=== PATIENT | female | born 1935 | race Caucasian/White ===

== ENCOUNTER 2020-04-30 19:35 | Emergency (ER) | payer MEDICARE, BC ==
[2020-04-30 19:42] VITALS: BP 137/64; PULSE 72
[2020-04-30] MEDS ORDERED: Lidocaine 1% with EPINEPHrine 1:100,000 50 ML MDV INFILT ONE (21:03)
--- NOTE | 2020-04-30 21:33 | EDM.PDOC ---
ED HPI GENERAL MEDICAL PROBLEM - General Chief Complaint: Laceration Stated Complaint: FELL Time Seen by Provider: 04/30/20 21:13 Source of Information: Reports: Patient, EMS History Limitations: Reports: No Limitations - History of Present Illness INITIAL COMMENTS - FREE TEXT/NARRATIVE: Iris is an 84-year-old female presenting to the ED for evaluation of a laceration to her scalp that occurred when she fell at home today striking the oak cabinets in her kitchen. Patient has a history of her left foot weakness and giving out if she starts walking with it. She inadvertently started to walk leading with her left foot which did give out causing her to fall backwards striking her head against the cabinets of her kitchen. She denies any loss of consciousness or significant headache. She did have a laceration of the scalp over the occiput. She denies any neck pain, numbness or tingling, change in vision, ringing in the ears, or new weakness. She has had no nausea or vomiting. She arrived via [facility] with bleeding controlled. Head Pain Score (Numeric/FACES): 8 - Related Data Allergies Allergy/AdvReac Type Severity Reaction Status Date / Time aspirin [From Percodan] Allergy Cannot Verified 04/30/20 19:50 Remember codeine Allergy Nausea Verified 04/30/20 19:50 erythromycin base Allergy Nausea and Verified 04/30/20 19:50 [Erythromycin Base] Vomiting latex Allergy Itching Verified 04/30/20 19:50 oxycodone HCl [From Percodan] Allergy Cannot Verified 04/30/20 19:50 Remember oxycodone terephthalate Allergy Cannot Verified 04/30/20 19:50 [From Percodan] Remember Home Meds: Home Meds Digoxin 250 mcg PO DAILY 04/21/14 [History] Apixaban [Eliquis] 1 tab PO BID 04/30/20 [History] Furosemide [Lasix] 20 mg PO DAILY 04/30/20 [History] Magnesium Oxide 1 tab PO DAILY 04/30/20 [History] Sotalol HCl [Sotalol] 1 tab PO BID 04/30/20 [History] Past Medical History HEENT History: Reports: Hard of Hearing Cardiovascular History: Reports: Afib, Pacemaker Gastrointestinal History: Reports: GERD Psychiatric History: Reports: Dementia Hematologic History: Reports: Anticoagulation Therapy - Past Surgical History Cardiovascular Surgical History: Reports: Pacer Social & Family History - Tobacco Use Tobacco Use Status *Q: Never Tobacco User ED ROS GENERAL - Review of Systems Review Of Systems: See Below Constitutional: Reports: No Symptoms HEENT: Reports: Other (Laceration over the right occiput with bleeding controlled at this time.) Respiratory: Reports: No Symptoms Cardiovascular: Reports: No Symptoms Endocrine: Reports: No Symptoms GI/Abdominal: Reports: No Symptoms : Reports: No Symptoms Musculoskeletal: Reports: No Symptoms. Denies: Back Pain Skin: Reports: Wound (Laceration right occiput) Neurological: Reports: Weakness (Chronic weakness in the left foot). Denies: Dizziness, Headache, Numbness, Paresthesia Psychiatric: Reports: No Symptoms Hematologic/Lymphatic: Reports: No Symptoms Immunologic: Reports: No Symptoms ED EXAM, SKIN/RASH Exam: See Below Exam Limited By: No Limitations General Appearance: Alert, WD/WN, No Apparent Distress Eye Exam: Bilateral Eye: Bleeding, EOMI, PERRL, Vision Changes Ears: Normal External Exam, Normal Canal, Hearing Grossly Normal, Normal TMs, Other (No hemotympanum) Nose: Normal Inspection, Normal Mucosa, No Blood Throat/Mouth: Normal Inspection, Normal Lips, Normal Teeth, Normal Gums, Normal Oropharynx, Normal Voice Head: Other (3.6 cm laceration right occiput that gaps widely.) Neck: Normal Inspection, Supple, Non-Tender, Full Range of Motion Respiratory/Chest: No Respiratory Distress, Lungs Clear, Normal Breath Sounds, Chest Non-Tender Cardiovascular: Normal Peripheral Pulses, Regular Rate, Rhythm, No Murmur Peripheral Pulses: 2+: Radial (L), Radial (R) GI/Abdominal: Normal Bowel Sounds, Soft, Non-Tender Back Exam: Normal Inspection, Full Range of Motion Extremities: Normal Inspection, Normal Range of Motion, Non-Tender Neurological: Alert, Oriented, CN II-XII Intact, Normal Cognition, Sensory/Motor Deficit (Mild weakness in the left leg which is chronic.) Psychiatric: Normal Affect, Normal Mood Skin: Warm, Dry Lymphatic: No Adenopathy ED SKIN PROCEDURES - Laceration/Wound Repair Right Posterior Head Appearance: Muscle, Clean Distal NVT: Neuro & Vascular Intact Anesthetic Type: Local Local Anesthesia - Lidocaine (Xylocaine): 1% with EPI Local Anesthetic Volume: 3cc Skin Prep: Other (Tap water) Exploration/Debridement/Repair: Wound Explored, In a Bloodless Field, Explored to Base Closed with: Sutures Lac/Wound length In cm: 3.6 Suture Size: 4-0 # of Sutures: 6 Suture Type: Prolene Drain Placement: No Sterile Dressing Applied: None Tetanus Status Addressed: Yes Complications: No Course - Vital Signs Last Recorded V/S: Last Vital Signs Temp 36.5 C 04/30/20 19:42 Pulse 72 04/30/20 19:42 Resp 16 04/30/20 19:42 BP 137/64 04/30/20 19:42 Pulse Ox 98 04/30/20 19:42 - Orders/Labs/Meds Meds: Medications Discontinued Medications Generic Name Dose Route Start Last Admin Trade Name Freq PRN Reason Stop Dose Admin Lidocaine/Epinephrine 5 ml 04/30/20 21:03 Xylocaine 1% With Epinephrine 1:100,000 INFILT 04/30/20 21:04 ONETIME ONE Departure - Departure Time of Disposition: 21:30 Disposition: Home, Self-Care 01 Condition: Good Clinical Impression: Fall Qualifiers: Encounter type: initial encounter Qualified Code(s): W19.XXXA - Unspecified fall, initial encounter Occipital scalp laceration Qualifiers: Encounter type: initial encounter Qualified Code(s): S01.01XA - Laceration without foreign body of scalp, initial encounter - Discharge Information Instructions: Laceration Care, Adult, Wound Care, Adult Referrals: Monica Ball PA [Primary Care Provider] - Forms: ED Department Discharge Care Plan Goals: We have sutured your laceration on the scalp. You may have some light bleeding from the area over the next 12 to 24 hours as the scab forms. I would recommend applying a light coating of antibiotic ointment to the wound twice daily. This should help not only prevent infection but also aid in the healing. The sutures will need to be removed in 7 to 10 days which can be done at the clinic. Should you develop any significant headache we should see you back for reevaluation. It was a delight meeting with you. Sepsis Event Note (ED) - Evaluation Sepsis Screening Result: No Definite Risk - Focused Exam Vital Signs: Vital Signs Temp Pulse Resp BP Pulse Ox 04/30/20 19:42 36.5 C 72 16 137/64 98 04/30/20 19:40 36.5 C 72 16 137/64 98 - Problem List & Annotations (1) Fall SNOMED Code(s): 2783725, 317634059 Code(s): W19.XXXA - UNSPECIFIED FALL, INITIAL ENCOUNTER Status: Acute Priority: Medium Current Visit: Yes Qualifiers: Encounter type: initial encounter Qualified Code(s): W19.XXXA - Unspecified fall, initial encounter (2) Occipital scalp laceration SNOMED Code(s): 361147229 Code(s): S01.01XA - LACERATION WITHOUT FOREIGN BODY OF SCALP, INITIAL ENCOUNTER Status: Acute Priority: Medium Current Visit: Yes Qualifiers: Encounter type: initial encounter Qualified Code(s): S01.01XA - Laceration without foreign body of scalp, initial encounter - Problem List Review Problem List Initiated/Reviewed/Updated: Yes
[2020-04-30] MEDS ORDERED: Bacitracin Oint 1 GM U/D Packet TOP ONE (21:38)
[2020-04-30] MEDS ORDERED: Diphtheria/Tetanus Toxoids,Adult (Td) 0.5 ML SDV IM ONE (21:40)
== END 2020-04-30 21:52 | disposition home or self-care (01) ==
LOC: JP.ED 19:35
DX: S01.01XA Laceration without foreign body of scalp, initial encounter (principal); R53.1 Weakness; I48.91 Unspecified atrial fibrillation; F03.90 Unspecified dementia, unspecified severity, without behavioral disturbance, psychotic disturbance, mood disturbance, and anxiety; Z23 Encounter for immunization; Z79.01 Long term (current) use of anticoagulants; Z79.899 Other long term (current) drug therapy; Z88.8 Allergy status to other drugs, medicaments and biological substances; Z88.5 Allergy status to narcotic agent; Z88.1 Allergy status to other antibiotic agents; Z91.040 Latex allergy status; Z88.6 Allergy status to analgesic agent; W19.XXXA Unspecified fall, initial encounter; W22.8XXA Striking against or struck by other objects, initial encounter; Y93.01 Activity, walking, marching and hiking; Y92.000 Kitchen of unspecified non-institutional (private) residence as the place of occurrence of the external cause
CPT/HCPCS: 12002; 90471; 90714; 99283-25

== ENCOUNTER 2020-05-31 08:01 | Inpatient (IN) | payer MEDICARE, BC ==
[2020-05-31] MEDS ORDERED: Ondansetron 4 MG/2 ML SDV IVPUSH ONE (08:52)
[2020-05-31] MEDS ORDERED: Sodium Chloride 0.9% 1,000 ML IV SCH ×3 (09:00→15:30)
--- NOTE | 2020-05-31 09:00 | EDM.PDOC ---
ED HPI GENERAL MEDICAL PROBLEM - General Chief Complaint: General Stated Complaint: WEAK, VOMITING Time Seen by Provider: 05/31/20 08:40 Source of Information: Reports: Patient, Family History Limitations: Reports: No Limitations - History of Present Illness INITIAL COMMENTS - FREE TEXT/NARRATIVE: 84-year-old female with profound weakness, diarrhea and persistent nausea and vomiting found at her assisted living apartment this morning on the kitchen floor unable to get up due to weakness. She was seen in the clinic yesterday and had some labs drawn, saw an ENT specialist and her [id number] commented that that time that she did not "look well" so some labs were drawn and she was sent home. She continues to have nausea and vomiting and diarrhea and increased weakness. She had a headache and light sensitivity yesterday. Onset: Gradual Duration: Day(s): (Worsening over the past several days) Location: Reports: Generalized Associated Symptoms: Reports: Headaches, Malaise, Weakness, Other (Headache, photophobia). Denies: Chest Pain, Cough, Fever/Chills, Shortness of Breath - Related Data Allergies Allergy/AdvReac Type Severity Reaction Status Date / Time aspirin [From Percodan] Allergy Cannot Verified 05/31/20 08:32 Remember codeine Allergy Nausea Verified 05/31/20 08:32 erythromycin base Allergy Nausea and Verified 05/31/20 08:32 [Erythromycin Base] Vomiting latex Allergy Itching Verified 05/31/20 08:32 oxycodone HCl [From Percodan] Allergy Cannot Verified 05/31/20 08:32 Remember oxycodone terephthalate Allergy Cannot Verified 05/31/20 08:32 [From Percodan] Remember Home Meds: Home Meds Digoxin 250 mcg PO DAILY 04/21/14 [History] Apixaban [Eliquis] 2.5 mg PO BID 04/30/20 [History] Furosemide [Lasix] 20 mg PO DAILY 04/30/20 [History] Magnesium Oxide 250 mg PO DAILY 04/30/20 [History] Sotalol HCl [Sotalol] 80 mg PO BID 04/30/20 [History] Donepezil [Aricept] 5 mg PO DAILY 05/31/20 [History] Past Medical History HEENT History: Reports: Hard of Hearing Cardiovascular History: Reports: Afib, Pacemaker Gastrointestinal History: Reports: GERD Psychiatric History: Reports: Dementia Hematologic History: Reports: Anticoagulation Therapy - Past Surgical History Cardiovascular Surgical History: Reports: Pacer Social & Family History - Tobacco Use Tobacco Use Status *Q: Never Tobacco User ED ROS GENERAL - Review of Systems Review Of Systems: See Below Constitutional: Reports: Malaise, Decreased Appetite. Denies: Fever, Chills HEENT: Reports: Other (Photophobia). Denies: Vision Change Respiratory: Denies: Shortness of Breath, Cough Cardiovascular: Denies: Chest Pain, Palpitations (Has a pacemaker to override intermittent atrial fibrillation) GI/Abdominal: Reports: Diarrhea, Nausea, Vomiting. Denies: Abdominal Pain, Black Stool, Hematemesis, Hematochezia : Denies: Dysuria, Frequency, Urgency Musculoskeletal: Reports: Other (Denies musculoskeletal pain or injury from falling) Neurological: Reports: Headache, Other (Had a closed head injury last month) ED EXAM, GENERAL - Physical Exam Exam: See Below Exam Limited By: No Limitations General Appearance: Alert, No Apparent Distress, Other (Patient looks extremely tired, keeps eyes closed when not interacting) Eye Exam: Bilateral Eye: EOMI, Other (Appears sunken) Throat/Mouth: Other (Mild mucosal dryness) Head: Atraumatic Neck: Non-Tender Respiratory/Chest: Lungs Clear Cardiovascular: Regular Rate, Rhythm. No: Tachycardia GI/Abdominal: Normal Bowel Sounds, Soft Extremities: Other (Symmetric 1+ pitting edema, compression stockings are on) Neurological: Alert, Oriented, Slow to Respond. No: Disoriented Psychiatric: Depressed Mood, Flat Affect Skin Exam: Warm, Dry, Other (Looks somewhat pale) Course - Vital Signs Last Recorded V/S: Last Vital Signs Temp 97.7 F 05/31/20 12:21 Pulse 70 05/31/20 08:39 Resp 12 05/31/20 12:21 BP 109/56 L 05/31/20 12:21 Pulse Ox 96 05/31/20 12:21 - Orders/Labs/Meds Orders: Medication Orders Acetaminophen (Tylenol) 650 mg PO Q4H PRN PRN Reason: Pain (Mild 1-3)/fever Digoxin (Lanoxin) 250 mcg PO DAILY@1300 JANEL Sodium Chloride (Normal Saline) 1,000 mls @ 125 mls/hr IV ASDIRECTED JANEL Magnesium Oxide (Magnesium Oxide) 400 mg PO DAILY JANEL Ondansetron HCl (Zofran) 4 mg IV Q4H PRN PRN Reason: Nausea/Vomiting Sodium Chloride (Saline Flush) 10 ml FLUSH ASDIRECTED PRN PRN Reason: Keep Vein Open Sotalol HCl (Betapace) 80 mg PO BID [facility] Labs: Laboratory Tests 05/31/20 05/31/20 05/31/20 Range/Units 08:45 08:45 09:10 WBC 8.2 (4.5-11.0) K/uL RBC 4.37 (3.30-5.50) M/uL Hgb 13.7 (12.0-15.0) g/dL Hct 38.6 (36.0-48.0) % MCV 88 (80-98) fL MCH 31 (27-31) pg MCHC 36 (32-36) % Plt Count 238 (150-400) K/uL Neut % (Auto) 69 H (36-66) % Lymph % (Auto) 21 L (24-44) % Cook % (Auto) 9 H (2-6) % Eos % (Auto) 0 L (2-4) % Baso % (Auto) 0 (0-1) % Sodium 116 L* (140-148) mmol/L Potassium 3.9 (3.6-5.2) mmol/L Chloride 83 L (100-108) mmol/L Carbon Dioxide 21 (21-32) mmol/L Anion Gap 15.9 H (5.0-14.0) mmol/L BUN 18 (7-18) mg/dL Creatinine 0.6 (0.6-1.0) mg/dL Est Cr Clr Drug Dosing 55.80 mL/min Estimated GFR (MDRD) > 60 (>60) Glucose 150 H (74-106) mg/dL Calcium 8.6 (8.5-10.1) mg/dL Total Bilirubin 1.3 H D (0.2-1.0) mg/dL AST 33 (15-37) U/L ALT 35 (12-78) U/L Alkaline Phosphatase 79 (46-116) U/L Creatine Kinase 196 H (26-192) U/L Total Protein 6.7 (6.4-8.2) g/dL Albumin 3.6 (3.4-5.0) g/dL Globulin 3.1 (2.3-3.5) g/dL Albumin/Globulin Ratio 1.2 (1.2-2.2) Urine Color Yellow (YELLOW) Urine Appearance Slightly cloudy A (CLEAR) Urine pH 5.5 (5.0-8.0) Ur Specific Mcgrady >= 1.030 (1.008-1.030) Urine Protein 100 H (NEGATIVE) mg/dL Urine Glucose (UA) Negative (NEGATIVE) mg/dL Urine Ketones 40 H (NEGATIVE) mg/dL Urine Occult Blood Moderate H (NEGATIVE) Urine Nitrite Negative (NEGATIVE) Urine Bilirubin Small H (NEGATIVE) Urine Urobilinogen 0.2 (0.2-1.0) EU/dL Ur Leukocyte Esterase Negative (NEGATIVE) Urine RBC 5-10 H (0-5) Urine WBC 0-5 (0-5) Ur Epithelial Cells Not seen Amorphous Sediment Moderate Urine Bacteria Few Urine Mucus Many Meds: Medications Generic Name Dose Route Start Last Admin Trade Name Freq PRN Reason Stop Dose Admin Acetaminophen 650 mg 05/31/20 11:28 Tylenol PO Q4H PRN Pain (Mild 1-3)/fever Digoxin 250 mcg 06/01/20 13:00 Lanoxin PO DAILY@1300 JANEL Sodium Chloride 1,000 mls @ 125 mls/hr 05/31/20 11:28 Normal Saline IV ASDIRECTED JANEL Magnesium Oxide 400 mg 06/01/20 09:00 Magnesium Oxide PO DAILY JANEL Ondansetron HCl 4 mg 05/31/20 11:28 Zofran IV Q4H PRN Nausea/Vomiting Sodium Chloride 10 ml 05/31/20 11:28 Saline Flush FLUSH ASDIRECTED PRN Keep Vein Open Sotalol HCl 80 mg 05/31/20 21:00 Betapace PO BID JANEL Discontinued Medications Generic Name Dose Route Start Last Admin Trade Name Freq PRN Reason Stop Dose Admin Apixaban 2.5 mg 05/31/20 21:00 Eliquis PO BID JANEL Donepezil HCl 5 mg 06/01/20 09:00 Aricept PO DAILY JANEL Sodium Chloride 1,000 mls @ 250 mls/hr 05/31/20 09:00 05/31/20 09:09 Normal Saline IV 250 mls/hr ASDIRECTED JANEL Administration Ondansetron HCl 4 mg 05/31/20 08:52 02/05/21 09:09 Zofran IVPUSH 05/31/20 08:53 4 mg ONETIME ONE Administration - Re-Assessments/Exams Free Text/Narrative Re-Assessment/Exam: 05/31/20 09:01 Patient will be hydrated with 250 cc an hour of normal saline and given 4 mg of IV Zofran. CBC, CMP, CK will be obtained and compared with yesterday's labs, and a mini cath UA obtained. 05/31/20 09:25 Sodium is now 116, was [address] of the head without contrast will be obtained as the patient had a head injury 1 month ago and is on anticoagulants. 05/31/20 09:[address] shows what appears to be a nonacute hygroma over the right parietal lobe, UA shows no infection although there is 5-10 RBCs and ketones. Discussed her case with Dr. Marion will admit the patient for progressive weakness, hyponatremia, and persistent nausea and vomiting Departure - Departure Time of Disposition: 12:10 Disposition: Admitted As Inpatient 68 Clinical Impression: Hyponatremia, Dehydration, moderate, Weakness generalized, Subdural hygroma Nausea and vomiting Qualifiers: Vomiting type: unspecified Vomiting Intractability: non-intractable Qualified Code(s): R11.2 - Nausea with vomiting, unspecified - Discharge Information Sepsis Event Note (ED) - Evaluation Sepsis Screening Result: No Definite Risk - Focused Exam Vital Signs: Vital Signs Temp Pulse Resp BP Pulse Ox 05/31/20 08:39 98.2 F 70 18 161/80 H 94 L 05/31/20 08:26 98.2 F 70 18 161/80 H 94 L
--- NOTE | 2020-05-31 09:56 | CT ---
Head wo Cont CLINICAL HISTORY: Increasing weakness, history of fall COMPARISON: 2019 TECHNIQUE: Transverse scans were obtained from the base of the skull through the vertex without IV contrast on a multislice, multidetector CT scanner. Auto dosage reduction and iterative reconstruction techniques employed. FINDINGS: No focal abnormal parenchymal density is identified.. There is no mass defect or acute hemorrhage. There is a low-attenuation extra-axial collection over the right parietal lobe. This extends approximately 6 cm in AP dimension and 5 cm in transverse dimension. The maximum thickness is about 8 mm. There is some minimal increased fluid density in the dependent portion of this collection which may represent previous blood product. The basal cisterns and sulci over the convexities are normal for age. The ventricles are normal for age. IMPRESSION: Low-attenuation extra-axial collection over the right parietal lobe is consistent with a small subdural hygroma. (Patient had a history of fall last month. )There is minimal mass effect with no shift of the midline. Minimal density in the dependent portion of this fluid collection may represent blood products from old subdural hemorrhage. A small superimposed acute hemorrhage is not absolutely excluded but felt less likely.
--- NOTE | 2020-05-31 10:14 | PCM.HP.2 ---
H&P History of Present Illness - General Date of Service: 05/31/20 Admit Problem/Dx: Admission Diagnosis/Problem Admission Diagnosis/Problem Hyponatremia Source of Information: Patient, Provider, RN Notes Reviewed History Limitations: Reports: Altered Mental Status (Dementia) - History of Present Illness Initial Comments - Free Text/Narative: Ms. Gann is an 84-year-old woman who was admitted through the emergency department with weakness secondary to nausea and vomiting, resulting in severe hyponatremia. Over the past few days has had nausea vomiting with progressive weakness. She was found on the floor today and unable to get up. On evaluation in the emergency department labs and CT scan of the head were unremarkable except for sodium of 116. Labs have been obtained at the clinic yesterday and her sodium was 127. She reports that she had been taking a stool softener and thinks that this did result in her vomiting and diarrhea. - Related Data Allergies/Adverse Reactions: Allergies Allergy/AdvReac Type Severity Reaction Status Date / Time aspirin [From Percodan] Allergy Cannot Verified 05/31/20 08:32 Remember codeine Allergy Nausea Verified 05/31/20 08:32 erythromycin base Allergy Nausea and Verified 05/31/20 08:32 [Erythromycin Base] Vomiting latex Allergy Itching Verified 05/31/20 08:32 oxycodone HCl [From Percodan] Allergy Cannot Verified 05/31/20 08:32 Remember oxycodone terephthalate Allergy Cannot Verified 05/31/20 08:32 [From Percodan] Remember Home Medications: Home Meds Digoxin 250 mcg PO DAILY 04/21/14 [History] Apixaban [Eliquis] 1 tab PO BID 04/30/20 [History] Furosemide [Lasix] 20 mg PO DAILY 04/30/20 [History] Magnesium Oxide 1 tab PO DAILY 04/30/20 [History] Sotalol HCl [Sotalol] 1 tab PO BID 04/30/20 [History] Donepezil [Aricept] 1 tab PO DAILY 05/31/20 [History] Past Medical History HEENT History: Reports: Hard of Hearing Cardiovascular History: Reports: Afib, Pacemaker Gastrointestinal History: Reports: GERD Psychiatric History: Reports: Dementia Hematologic History: Reports: Anticoagulation Therapy - Past Surgical History Cardiovascular Surgical History: Reports: Pacer Social & Family History - Tobacco Use Tobacco Use Status *Q: Never Tobacco User H&P Review of Systems - Review of Systems: Review Of Systems: See Below General: Reports: Malaise, Weakness, Fatigue. Denies: Fever, Chills HEENT: Reports: No Symptoms Pulmonary: Reports: No Symptoms Cardiovascular: Reports: No Symptoms Gastrointestinal: Reports: Diarrhea, Nausea, Vomiting. Denies: Abdominal Pain, Difficulty Swallowing, Distension, Hematemesis, Hematochezia, Melena Genitourinary: Reports: No Symptoms Musculoskeletal: Reports: No Symptoms Skin: Reports: No Symptoms Psychiatric: Reports: No Symptoms Neurological: Reports: No Symptoms Hematologic/Lymphatic: Reports: No Symptoms Immunologic: Reports: No Symptoms Exam - Exam Exam: See Below - Vital Signs Vital Signs: Last Vital Signs Temp 98.2 F 05/31/20 08:39 Pulse 70 05/31/20 08:39 Resp 18 05/31/20 08:39 BP 161/80 H 05/31/20 08:39 Pulse Ox 94 L 05/31/20 08:39 Weight: 107 lb 12.897 oz - Exam Quality Assessment: DVT Prophylaxis General: Alert, Cooperative, Moderate Distress HEENT: Conjunctiva Clear, Hearing Intact, Normal Nasal Septum, Posterior Pharynx Clear, Pupils Equal. No: Mucosa Moist & Hallock Neck: Supple, Trachea Midline, +2 Carotid Pulse wo Bruit Lungs: Clear to Auscultation, Normal Respiratory Effort Cardiovascular: Regular Rate, Regular Rhythm, Normal S1, Normal S2. No: Systolic Murmur, Diastolic Murmur GI/Abdominal Exam: Soft, Non-Tender, No Organomegaly, No Distention Extremities: Non-Tender, No Pedal Edema Skin: Warm, Dry, Intact Neurological: Cranial Nerves Intact, Strength Equal Bilateral, Normal Speech, Normal Tone, Sensation Intact. No: Focal Deficit Neuro Extensive - Mental Status: Alert, Oriented x3, Memory Loss-Remote Events, Memory Loss-Recent Events. No: Normal Cognition, Memory Intact - Patient Data Lab Results Last 24 hrs: Laboratory Results - last 24 hr 05/31/20 05/31/20 05/31/20 Range/Units 08:45 08:45 09:10 WBC 8.2 (4.5-11.0) K/uL RBC 4.37 (3.30-5.50) M/uL Hgb 13.7 (12.0-15.0) g/dL Hct 38.6 (36.0-48.0) % MCV 88 (80-98) fL MCH 31 (27-31) pg MCHC 36 (32-36) % Plt Count 238 (150-400) K/uL Neut % (Auto) 69 H (36-66) % Lymph % (Auto) 21 L (24-44) % [place] % (Auto) 9 H (2-6) % Eos % (Auto) 0 L (2-4) % Baso % (Auto) 0 (0-1) % Sodium 116 L* (140-148) mmol/L Potassium 3.9 (3.6-5.2) mmol/L Chloride 83 L (100-108) mmol/L Carbon Dioxide 21 (21-32) mmol/L Anion Gap 15.9 H (5.0-14.0) mmol/L BUN 18 (7-18) mg/dL Creatinine 0.6 (0.6-1.0) mg/dL Est Cr Clr Drug Dosing 55.80 mL/min Estimated GFR (MDRD) > 60 (>60) Glucose 150 H (74-106) mg/dL Calcium 8.6 (8.5-10.1) mg/dL Total Bilirubin 1.3 H D (0.2-1.0) mg/dL AST 33 (15-37) U/L ALT 35 (12-78) U/L Alkaline Phosphatase 79 (46-116) U/L Creatine Kinase 196 H (26-192) U/L Total Protein 6.7 (6.4-8.2) g/dL Albumin 3.6 (3.4-5.0) g/dL Globulin 3.1 (2.3-3.5) g/dL Albumin/Globulin Ratio 1.2 (1.2-2.2) Urine Color Yellow (YELLOW) Urine Appearance Slightly cloudy A (CLEAR) Urine pH 5.5 (5.0-8.0) Ur Specific Chancellor >= 1.030 (1.008-1.030) Urine Protein 100 H (NEGATIVE) mg/dL Urine Glucose (UA) Negative (NEGATIVE) mg/dL Urine Ketones 40 H (NEGATIVE) mg/dL Urine Occult Blood Moderate H (NEGATIVE) Urine Nitrite Negative (NEGATIVE) Urine Bilirubin Small H (NEGATIVE) Urine Urobilinogen 0.2 (0.2-1.0) EU/dL Ur Leukocyte Esterase Negative (NEGATIVE) Urine RBC 5-10 H (0-5) Urine WBC 0-5 (0-5) Ur Epithelial Cells Not seen Amorphous Sediment Moderate Urine Bacteria Few Urine Mucus Many Result Diagrams: 05/31/20 08:45 05/31/20 10:07 Sepsis Event Note - Evaluation Sepsis Screening Result: No Definite Risk - Focused Exam Vital Signs: Vital Signs Temp Pulse Resp BP Pulse Ox 05/31/20 08:39 98.2 F 70 18 161/80 H 94 L 05/31/20 08:26 98.2 F 70 18 161/80 H 94 L *Q Meaningful Use (ADM) - VTE *Q VTE Pharmacological Contraindications *Q: High INR Value - VTE Risk Assess *Q Each Risk Factor Represents 1 Point: None Total Score 1 Point Risk Factors: 0 Each Risk Factor Represents 2 Points: None Total Score 2 Point Risk Factors: 0 Each Risk Factor Represents 3 Points: Age 75 Years or Greater Total Score 3 Point Risk Factors: 3 Each Risk Factor Represents 5 Points: None Total Score 5 Point Risk Factors: 0 Venous Thromboembolism Risk Factor Score *Q: 3 Problem List Initiated/Reviewed/Updated: Yes Orders Last 24hrs: Active Orders 24 hr Category Date Time Status Patient Status Manage Transfer [TRANSFER] Routine ADT 05/31/20 10:08 Ordered SODIUM,NA [CHEM] [facility] 05/31/20 10:07 Ordered SODIUM,NA [CHEM] [facility] 05/31/20 12:07 Ordered SODIUM,NA [CHEM] [facility] 05/31/20 14:07 Ordered SODIUM,NA [CHEM] [facility] 05/31/20 16:07 Ordered SODIUM,NA [CHEM] [facility] 05/31/20 18:07 Ordered SODIUM,NA [CHEM] [facility] 05/31/20 20:07 Ordered SODIUM,NA [CHEM] [facility] 05/31/20 22:07 Ordered SODIUM,NA [CHEM] [facility] 06/01/20 00:07 Ordered SODIUM,NA [CHEM] [facility] 06/01/20 02:07 Ordered SODIUM,NA [CHEM] [facility] 06/01/20 04:07 Ordered Sodium Chloride 0.9% [Normal Saline] 1,000 ml Med 05/31/20 09:00 Active IV ASDIRECTED Resuscitation Status Routine Resus Stat 05/31/20 10:10 Ordered Medication Orders Sodium Chloride (Normal Saline) 1,000 mls @ 250 mls/hr IV ASDIRECTED [facility] Last Admin: 05/31/20 09:09 Dose: 250 mls/hr Documented by: LEV Assessment/Plan Comment:: ASSESSMENT AND PLAN HYPONATREMIA-likely secondary to dehydration, less likely SIADH. She has had recent nausea vomiting and diarrhea with progressive weakness. Sodium level yesterday was 127 and is dropped to 116 today. -Cautious hydration with normal saline -Sodium levels every 2 hours -Maximum increase in sodium level over the next 24 hours of 8 mmol/L -Switch IV fluids to half-normal saline or D5W if needed NAUSEA, VOMITING, AND DIARRHEA-patient attributes this to recent stool softener use, I suspect underlying viral gastroenteritis -Supportive care -Hydration as above DEMENTIA -Continue outpatient medications ATRIAL FIBRILLATION -Continue outpatient anticoagulation with Eliquis -Continue sotalol MAINTENANCE ISSUES -DVT prophylaxis; current therapy with Eliquis should provide adequate DVT prophylaxis -GI prophylaxis; not indicated -Vergara catheter; not indicated -Nutrition; regular diet -Nicotine dependence; not required CODE STATUS-FULL CODE ADMISSION STATUS-patient will be admitted to inpatient status, expect at least a 2 night hospital stay for evaluation and management of problems as outlined above. At the time of this admission I do not reasonably expected evaluation and management of this problem will require more than a 96 hour hospital stay. DISPOSITION-anticipate discharge to home after the hospital stay. PRIMARY CARE PROVIDER-Rosa Ball - Mortality Measure Prognosis:: Good
[2020-05-31] MEDS ORDERED: Ondansetron 4 MG/2 ML SDV IV PRN (11:28)
[2020-05-31] MEDS ORDERED: Sodium Chloride 0.9% 10 ML Syringe FLUSH PRN (11:28)
[2020-05-31] MEDS ORDERED: Sodium Chloride 0.45% 1,000 ML IV SCH (13:00)
[2020-05-31] MEDS: Acetaminophen 325 MG Tab PO PRN (13:34)
[2020-05-31] MEDS: Sotalol 80 MG Tab PO SCH (20:46)
[2020-05-31] MEDS: Dextrose 5% in Water 1,000 ML IV SCH (20:46)
[2020-05-31] MEDS: Melatonin 3 MG Tab PO SCH (20:56)
[2020-05-31] MEDS ORDERED: Apixaban 2.5 MG Tab PO SCH (21:00)
[2020-06-01] MEDS: Dextrose 5% in Water 1,000 ML IV SCH (06:45)
[2020-06-01] MEDS: Acetaminophen 325 MG Tab PO PRN ×3 (07:55→21:33)
[2020-06-01] MEDS: Sotalol 80 MG Tab PO SCH ×2 (08:09→21:37)
[2020-06-01] MEDS ORDERED: Magnesium Oxide 400 MG Tab PO SCH ×2 (09:00)
[2020-06-01] MEDS ORDERED: Magnesium Sulfate/Water 2 GM/50 ML BAG IV ONE (09:00)
[2020-06-01] MEDS ORDERED: DONEPEZIL PO SCH (09:00)
[2020-06-01] MEDS ORDERED: Donepezil 10 MG Tab PO SCH (09:00)
--- NOTE | 2020-06-01 10:12 | PCM.PN ---
- General Info Date of Service: 06/01/20 Subjective Update: Ms. Gann been stable since admission. She remains fairly confused, but has not been significantly agitated. Sodium level has improved significantly from admission. Functional Status: Reports: Tolerating Diet, Ambulating, Urinating - Review of Systems General: Reports: Weakness, Fatigue Pulmonary: Reports: No Symptoms Cardiovascular: Reports: No Symptoms Gastrointestinal: Reports: No Symptoms Psychiatric: Reports: Confusion - Patient Data Vitals - Most Recent: Last Vital Signs Temp 97.6 F 06/01/20 07:52 Pulse 60 06/01/20 08:09 Resp 17 06/01/20 07:52 BP 119/71 06/01/20 08:09 Pulse Ox 95 06/01/20 07:52 Orthostatic Blood Pressure [ 125/68 Standing] Orthostatic Blood Pressure [ 113/60 Sitting] Orthostatic Blood Pressure [ 107/60 Supine] Weight - Most Recent: 248 lb 7.375 oz I&O - Last 24 Hours: Intake & Output 05/31/20 06/01/20 06/01/20 22:59 06:59 14:59 Intake Total 750 1574 50 Output Total 1650 450 750 Balance -900 1124 -700 Lab Results Last 24 Hours: Laboratory Results - last 24 hr 05/31/20 05/31/20 05/31/20 Range/Units 10:07 10:15 10:15 WBC (4.5-11.0) K/uL RBC (3.30-5.50) M/uL Hgb (12.0-15.0) g/dL Hct (36.0-48.0) % MCV (80-98) fL MCH (27-31) pg MCHC (32-36) % Plt Count (150-400) K/uL Neut % (Auto) (36-66) % Lymph % (Auto) (24-44) % [place] % (Auto) (2-6) % Eos % (Auto) (2-4) % Baso % (Auto) (0-1) % Sodium 119 L* (140-148) mmol/L Potassium (3.6-5.2) mmol/L Chloride (100-108) mmol/L Carbon Dioxide (21-32) mmol/L Anion Gap (5.0-14.0) mmol/L BUN (7-18) mg/dL Creatinine (0.6-1.0) mg/dL Est Cr Clr Drug Dosing mL/min Estimated GFR (MDRD) (>60) Glucose (74-106) mg/dL Calcium (8.5-10.1) mg/dL Magnesium (1.8-2.4) mg/dL TSH, Ultra Sensitive 0.897 (0.358-3.740) uIU/mL Digoxin < 0.20 L (0.90-2.00) ng/mL 05/31/20 05/31/20 05/31/20 Range/Units 12:20 14:40 16:15 WBC (4.5-11.0) K/uL RBC (3.30-5.50) M/uL Hgb (12.0-15.0) g/dL Hct (36.0-48.0) % MCV (80-98) fL MCH (27-31) pg MCHC (32-36) % Plt Count (150-400) K/uL Neut % (Auto) (36-66) % Lymph % (Auto) (24-44) % Ralls % (Auto) (2-6) % Eos % (Auto) (2-4) % Baso % (Auto) (0-1) % Sodium 121 L 119 L* 123 L (140-148) mmol/L Potassium (3.6-5.2) mmol/L Chloride (100-108) mmol/L Carbon Dioxide (21-32) mmol/L Anion Gap (5.0-14.0) mmol/L BUN (7-18) mg/dL Creatinine (0.6-1.0) mg/dL Est Cr Clr Drug Dosing mL/min Estimated GFR (MDRD) (>60) Glucose (74-106) mg/dL Calcium (8.5-10.1) mg/dL Magnesium (1.8-2.4) mg/dL TSH, Ultra Sensitive (0.358-3.740) uIU/mL Digoxin (0.90-2.00) ng/mL 05/31/20 05/31/20 05/31/20 Range/Units 18:56 20:07 22:10 WBC (4.5-11.0) K/uL RBC (3.30-5.50) M/uL Hgb (12.0-15.0) g/dL Hct (36.0-48.0) % MCV (80-98) fL MCH (27-31) pg MCHC (32-36) % Plt Count (150-400) K/uL Neut % (Auto) (36-66) % Lymph % (Auto) (24-44) % [place] % (Auto) (2-6) % Eos % (Auto) (2-4) % Baso % (Auto) (0-1) % Sodium 123 L 125 L 125 L (140-148) mmol/L Potassium (3.6-5.2) mmol/L Chloride (100-108) mmol/L Carbon Dioxide (21-32) mmol/L Anion Gap (5.0-14.0) mmol/L BUN (7-18) mg/dL Creatinine (0.6-1.0) mg/dL Est Cr Clr Drug Dosing mL/min Estimated GFR (MDRD) (>60) Glucose (74-106) mg/dL Calcium (8.5-10.1) mg/dL Magnesium (1.8-2.4) mg/dL TSH, Ultra Sensitive (0.358-3.740) uIU/mL Digoxin (0.90-2.00) ng/mL 06/01/20 06/01/20 06/01/20 Range/Units 00:15 02:07 04:10 WBC 8.6 (4.5-11.0) K/uL RBC 3.99 (3.30-5.50) M/uL Hgb 12.6 (12.0-15.0) g/dL Hct 36.0 (36.0-48.0) % MCV 90 (80-98) fL MCH 32 H (27-31) pg MCHC 35 (32-36) % Plt Count 208 (150-400) K/uL Neut % (Auto) 62 (36-66) % Lymph % (Auto) 23 L (24-44) % Ralls % (Auto) 14 H (2-6) % Eos % (Auto) 1 L (2-4) % Baso % (Auto) 0 (0-1) % Sodium 125 L 125 L (140-148) mmol/L Potassium (3.6-5.2) mmol/L Chloride (100-108) mmol/L Carbon Dioxide (21-32) mmol/L Anion Gap (5.0-14.0) mmol/L BUN (7-18) mg/dL Creatinine (0.6-1.0) mg/dL Est Cr Clr Drug Dosing mL/min Estimated GFR (MDRD) (>60) Glucose (74-106) mg/dL Calcium (8.5-10.1) mg/dL Magnesium (1.8-2.4) mg/dL TSH, Ultra Sensitive (0.358-3.740) uIU/mL Digoxin (0.90-2.00) ng/mL 06/01/20 06/01/20 06/01/20 Range/Units 04:10 06:00 08:00 WBC (4.5-11.0) K/uL RBC (3.30-5.50) M/uL Hgb (12.0-15.0) g/dL Hct (36.0-48.0) % MCV (80-98) fL MCH (27-31) pg MCHC (32-36) % Plt Count (150-400) K/uL Neut % (Auto) (36-66) % Lymph % (Auto) (24-44) % Ralls % (Auto) (2-6) % Eos % (Auto) (2-4) % Baso % (Auto) (0-1) % Sodium 123 L 126 L 125 L (140-148) mmol/L Potassium 3.6 (3.6-5.2) mmol/L Chloride 93 L (100-108) mmol/L Carbon Dioxide 26 (21-32) mmol/L Anion Gap 7.6 (5.0-14.0) mmol/L BUN 8 D (7-18) mg/dL Creatinine 0.8 (0.6-1.0) mg/dL Est Cr Clr Drug Dosing 41.85 mL/min Estimated GFR (MDRD) > 60 (>60) Glucose 111 H (74-106) mg/dL Calcium 8.3 L (8.5-10.1) mg/dL Magnesium 1.7 L (1.8-2.4) mg/dL TSH, Ultra Sensitive (0.358-3.740) uIU/mL Digoxin (0.90-2.00) ng/mL Med Orders - Current: Current Medications Acetaminophen (Tylenol) 650 mg PO Q4H PRN PRN Reason: Pain (Mild 1-3)/fever Last Admin: 06/01/20 07:55 Dose: 650 mg Documented by: Digoxin (Lanoxin) 250 mcg PO DAILY@1300 [facility] Sodium Chloride (Sodium Chloride 0.45%) 1,000 mls @ 100 mls/hr IV ASDIRECTED [facility] Last Admin: 05/31/20 13:02 Dose: 100 mls/hr Documented by: Magnesium Sulfate (Magnesium Sulfate In Water 2 Gm/50 Ml) 2 gm in 50 mls @ 25 mls/hr IV ONETIME ONE Stop: 06/01/20 10:59 Last Admin: 06/01/20 08:26 Dose: 25 mls/hr Documented by: Magnesium Oxide (Magnesium Oxide) 400 mg PO BID [facility] Melatonin (Melatonin) 9 mg PO BEDTIME [facility] Last Admin: 05/31/20 20:56 Dose: 9 mg Documented by: Ondansetron HCl (Zofran) 4 mg IV Q4H PRN PRN Reason: Nausea/Vomiting Sodium Chloride (Saline Flush) 10 ml FLUSH ASDIRECTED PRN PRN Reason: Keep Vein Open Sotalol HCl (Betapace) 80 mg PO BID [facility] Last Admin: 06/01/20 08:09 Dose: 80 mg Documented by: Discontinued Medications Apixaban (Eliquis) 2.5 mg PO BID [facility] Donepezil HCl (Aricept) 5 mg PO DAILY [facility] Sodium Chloride (Normal Saline) 1,000 mls @ 250 mls/hr IV ASDIRECTED [facility] Last Admin: 05/31/20 09:09 Dose: 250 mls/hr Documented by: Sodium Chloride (Normal Saline) 1,000 mls @ 125 mls/hr IV ASDIRECTED [facility] Sodium Chloride (Normal Saline) 1,000 mls @ 100 mls/hr IV ASDIRECTED [facility] Last Admin: 05/31/20 15:24 Dose: 100 mls/hr Documented by: Dextrose/Water (Dextrose 5% In Water) 1,000 mls @ 100 mls/hr IV ASDIRECTED [facility] Last Admin: 06/01/20 06:45 Dose: 100 mls/hr Documented by: Magnesium Oxide (Magnesium Oxide) 400 mg PO DAILY [facility] Stop: 06/01/20 10:00 Last Admin: 06/01/20 08:09 Dose: 400 mg Documented by: Magnesium Oxide (Magnesium Oxide) 400 mg PO BID [facility] Ondansetron HCl (Zofran) 4 mg IVPUSH ONETIME ONE Stop: 05/31/20 08:53 Last Admin: 05/31/20 09:09 Dose: 4 mg Documented by: - Exam Quality Assessment: DVT Prophylaxis General: Alert, Cooperative, No Acute Distress. No: Oriented Lungs: Clear to Auscultation, Normal Respiratory Effort Cardiovascular: Regular Rate, Regular Rhythm, No Murmurs GI/Abdominal Exam: Soft, Non-Tender, No Organomegaly, No Distention Extremities: Non-Tender, No Pedal Edema Sepsis Event Note - Evaluation Sepsis Screening Result: No Definite Risk - Focused Exam Vital Signs: Vital Signs Temp Pulse Pulse Resp BP BP Pulse Ox 06/01/20 08:09 60 119/71 06/01/20 07:52 97.6 F 61 17 121/70 95 06/01/20 06:00 60 17 107/60 96 06/01/20 04:00 98.2 F 69 16 106/57 L 96 06/01/20 02:00 60 15 125/58 L 06/01/20 00:00 98.0 F 60 22 H 113/55 L 96 - Problem List Review Problem List Initiated/Reviewed/Updated: Yes - My Orders Last 24 Hours: My Active Orders 05/31/20 10:10 Resuscitation Status Routine 05/31/20 11:28 Acetaminophen [TylenoL] 650 mg PO Q4H PRN Ondansetron [Zofran] 4 mg IV Q4H PRN Sodium Chloride 0.9% [Saline Flush] 10 ml FLUSH ASDIRECTED PRN 05/31/20 11:28 Patient Status [ADT] Routine Ambulate [RC] QID Cardiac Monitoring [RC] Q6H Height and Weight [RC] DAILY Intake and Output [RC] QSHIFT Notify Provider Vital Signs [RC] ASDIRECTED Oxygen Therapy [RC] PRN Peripheral IV Care [RC] . DIRECTED Up to Chair [RC] QID Vital Signs [RC] Q2H Peripheral IV Insertion Adult [OM.PC] Routine VTE Pharmacological Contraindications [AST] Per Unit Routine 05/31/20 12:12 Antiembolic Devices [RC] .Routine Sequential Compression Device [OM.PC] Routine 05/31/20 12:26 Consult to Physical Therapy [PT Evaluation and Treatment] [CONS] Routine 05/31/20 13:00 Sodium Chloride 0.45% 1,000 ml IV ASDIRECTED 05/31/20 21:00 Melatonin 9 mg PO BEDTIME Sotalol [Betapace] 80 mg PO BID 06/01/20 09:00 Magnesium Sulfate/Water [Magnesium Sulfate in Water 2 GM/50 ML] 2 gm in 50 ml IV ONETIME 06/01/20 10:00 SODIUM,NA [CHEM] Routine 06/01/20 10:02 Head wo Cont [CT] Stat 06/01/20 10:04 Convert IV to Saline Lock [OM.PC] Routine 06/01/20 13:00 Digoxin [Lanoxin] 250 mcg PO DAILY@1300 06/01/20 17:00 SODIUM,NA [CHEM] Stat 06/01/20 21:00 Magnesium Oxide 400 mg PO BID 06/02/20 05:00 BASIC METABOLIC PANEL,BMP [CHEM] Timed - Plan Plan:: ASSESSMENT AND PLAN HYPONATREMIA-improved from admission, sodium level this morning is 126 -Saline lock IV -Sodium levels later today and in a.m. NAUSEA, VOMITING, AND DIARRHEA-resolved, may have been secondary to medication effect with Aricept -Supportive care -Hold Aricept DEMENTIA -Hold Aricept ATRIAL FIBRILLATION -Eliquis, evidence of old subdural hematoma related to fall 1 month ago -Continue sotalol SUBDURAL FLUID COLLECTION-noted on CT scan obtained in the emergency department, likely represents old subdural hematoma from fall 1 month ago -Repeat CT scan to assure stability and make sure that there was no bleeding associated with fall yesterday MAINTENANCE ISSUES -DVT prophylaxis; SCUDs -GI prophylaxis; not indicated -Vergara catheter; not indicated -Nutrition; regular diet -Nicotine dependence; not required CODE STATUS-FULL CODE ADMISSION STATUS-patient will be admitted to inpatient status, expect at least a 2 night hospital stay for evaluation and management of problems as outlined above. At the time of this admission I do not reasonably expected evaluation and management of this problem will require more than a 96 hour hospital stay. DISPOSITION-anticipate discharge to home after the hospital stay. PRIMARY CARE PROVIDER-Rosa Ball
--- NOTE | 2020-06-01 10:55 | CRLCT ---
INDICATION: Follow-up subdural fluid, sp fall 1 month ago and 05/31/2020. TECHNIQUE: CT of the head without contrast. Coronal and sagittal reformats. Bone and soft tissue algorithms. COMPARISON: 05/31/2020 CT FINDINGS: No evidence of acute cortical infarction. 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 Stable minimal mass effect on the adjacent gyri. No midline shift. No new hemorrhage. Mild generalized cerebral/cerebellar parenchymal volume loss. Mild regions of decreased attenuation within the periventricular and subcortical white matter of both cerebral hemispheres most likely reflects chronic microvascular ischemic disease and age related change in this patient. Vascular calcifications within the carotid siphons. Orbital contents are normal. No calvarial fractures. No lytic or sclerotic osseous lesions within the calvarium or skull base. Scalp and other imaged soft tissue structures are normal. Mastoid air cells are clear. Cerumen in the right external ear canal. IMPRESSION: 1. 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 No new hemorrhage. 2. Stable minimal mass effect on the adjacent gyri. No midline shift. Please note that all CT scans at this facility use dose modulation, iterative reconstruction, and/or weight-based dosing when appropriate to reduce radiation dose to as low as reasonably achievable. Dictated by Sherwin Winter MD @ Jun 01 2020 10:50AM Signed by Dr. Sherwin Winter @ Jun 01 2020 10:54AM
[2020-06-01] MEDS: Digoxin 125 MCG Tab PO SCH (13:08)
[2020-06-01] MEDS: Melatonin 3 MG Tab PO SCH (21:34)
[2020-06-01] MEDS: Magnesium Oxide 400 MG Tab PO SCH (21:34)
[2020-06-02] MEDS: Magnesium Oxide 400 MG Tab PO SCH ×2 (08:07→21:01)
[2020-06-02] MEDS ORDERED: Potassium Chloride 20 MEQ Tab.ER PO ONE (09:00)
--- NOTE | 2020-06-02 09:04 | PCM.PN ---
- General Info Date of Service: 06/02/20 Subjective Update: Ms. Gann has remained stable since yesterday, sodium level significantly improved. She is requiring assist of 1 with transfers and ambulation. Nausea, vomiting, and diarrhea appear to have resolved and oral intake has been relatively good. She remains very confused. Currently unable to provide meaningful history concerning symptoms or review of systems. - Patient Data Vitals - Most Recent: Last Vital Signs Temp 95.2 F L 06/02/20 08:40 Pulse 61 06/02/20 08:40 Resp 16 06/02/20 08:40 BP 130/50 L 06/02/20 08:40 Pulse Ox 97 06/02/20 08:40 Orthostatic Blood Pressure [ 125/68 Standing] Orthostatic Blood Pressure [ 113/60 Sitting] Orthostatic Blood Pressure [ 107/60 Supine] Weight - Most Recent: 105 lb 8 oz I&O - Last 24 Hours: Intake & Output 06/01/20 06/02/20 06/02/20 22:59 06:59 14:59 Intake Total 240 296 Output Total 300 Balance 240 -4 Lab Results Last 24 Hours: Laboratory Results - last 24 hr 06/01/20 06/01/20 06/02/20 Range/Units 10:00 17:05 05:38 Sodium 123 L 126 L 132 L (140-148) mmol/L Potassium 3.6 (3.6-5.2) mmol/L Chloride 97 L (100-108) mmol/L Carbon Dioxide 28 (21-32) mmol/L Anion Gap 10.6 (5.0-14.0) mmol/L BUN 7 (7-18) mg/dL Creatinine 0.6 (0.6-1.0) mg/dL Est Cr Clr Drug Dosing 54.61 mL/min Estimated GFR (MDRD) > 60 (>60) Glucose 86 (74-106) mg/dL Calcium 8.3 L (8.5-10.1) mg/dL Med Orders - Current: Current Medications Acetaminophen (Tylenol) 650 mg PO Q4H PRN PRN Reason: Pain (Mild 1-3)/fever Last Admin: 06/01/20 21:33 Dose: 650 mg Documented by: Digoxin (Lanoxin) 250 mcg PO DAILY@1300 [facility] Last Admin: 06/01/20 13:08 Dose: 250 mcg Documented by: Magnesium Oxide (Magnesium Oxide) 400 mg PO BID [facility] Last Admin: 06/02/20 08:07 Dose: 400 mg Documented by: Melatonin (Melatonin) 9 mg PO BEDTIME [facility] Last Admin: 06/01/20 21:34 Dose: 9 mg Documented by: Ondansetron HCl (Zofran) 4 mg IV Q4H PRN PRN Reason: Nausea/Vomiting Sodium Chloride (Saline Flush) 10 ml FLUSH ASDIRECTED PRN PRN Reason: Keep Vein Open Sotalol HCl (Betapace) 80 mg PO BID [facility] Last Admin: 06/01/20 21:37 Dose: Not Given Documented by: Discontinued Medications Apixaban (Eliquis) 2.5 mg PO BID [facility] Donepezil HCl (Aricept) 5 mg PO DAILY [facility] Sodium Chloride (Normal Saline) 1,000 mls @ 250 mls/hr IV ASDIRECTED [facility] Last Admin: 05/31/20 09:09 Dose: 250 mls/hr Documented by: Sodium Chloride (Normal Saline) 1,000 mls @ 125 mls/hr IV ASDIRECTED [facility] Sodium Chloride (Sodium Chloride 0.45%) 1,000 mls @ 100 mls/hr IV ASDIRECTED [facility] Last Admin: 05/31/20 13:02 Dose: 100 mls/hr Documented by: Sodium Chloride (Normal Saline) 1,000 mls @ 100 mls/hr IV ASDIRECTED [facility] Last Admin: 05/31/20 15:24 Dose: 100 mls/hr Documented by: Dextrose/Water (Dextrose 5% In Water) 1,000 mls @ 100 mls/hr IV ASDIRECTED [facility] Last Admin: 06/01/20 06:45 Dose: 100 mls/hr Documented by: Magnesium Sulfate (Magnesium Sulfate In Water 2 Gm/50 Ml) 2 gm in 50 mls @ 25 mls/hr IV ONETIME ONE Stop: 06/01/20 10:59 Last Admin: 06/01/20 08:26 Dose: 25 mls/hr Documented by: Magnesium Oxide (Magnesium Oxide) 400 mg PO DAILY [facility] Stop: 06/01/20 10:00 Last Admin: 06/01/20 08:09 Dose: 400 mg Documented by: Magnesium Oxide (Magnesium Oxide) 400 mg PO BID [facility] Ondansetron HCl (Zofran) 4 mg IVPUSH ONETIME ONE Stop: 05/31/20 08:53 Last Admin: 05/31/20 09:09 Dose: 4 mg Documented by: - Exam Quality Assessment: DVT Prophylaxis General: Alert, Cooperative, No Acute Distress. No: Oriented Lungs: Clear to Auscultation, Normal Respiratory Effort Cardiovascular: Regular Rate, Regular Rhythm, No Murmurs GI/Abdominal Exam: Soft, Non-Tender, No Organomegaly, No Distention Extremities: Non-Tender, No Pedal Edema Sepsis Event Note - Evaluation Sepsis Screening Result: No Definite Risk - Focused Exam Vital Signs: Vital Signs Temp Pulse Pulse Resp BP BP Pulse Ox 06/02/20 08:40 95.2 F L 61 16 130/50 L 97 06/02/20 03:36 95.5 F L 65 16 123/62 97 06/01/20 22:38 95.6 F L 61 16 119/59 L 96 06/01/20 21:37 65 122/51 L 06/01/20 21:29 65 122/51 L - Problem List Review Problem List Initiated/Reviewed/Updated: Yes - My Orders Last 24 Hours: My Active Orders 06/01/20 10:04 Convert IV to Saline Lock [OM.PC] Routine 06/01/20 10:49 Patient Status [ADT] Routine 06/01/20 13:00 Digoxin [Lanoxin] 250 mcg PO DAILY@1300 06/01/20 21:00 Magnesium Oxide 400 mg PO BID 06/02/20 09:00 Potassium Chloride [Klor-Con M20] 40 meq PO ONETIME ONE 06/03/20 05:00 BASIC METABOLIC PANEL,BMP [CHEM] Timed - Plan Plan:: ASSESSMENT AND PLAN HYPONATREMIA-improved from admission, sodium level this morning is 132 -Saline lock IV -Sodium level in a.m. NAUSEA, VOMITING, AND DIARRHEA-resolved, may have been secondary to medication effect with Aricept -Supportive care -Hold Aricept DEMENTIA -Hold Aricept ATRIAL FIBRILLATION -Hold Eliquis, evidence of old subdural hematoma related to fall 1 month ago -Continue sotalol SUBDURAL FLUID COLLECTION-noted on CT scan obtained in the emergency department, likely represents old subdural hematoma from fall 1 month ago. Subdural hematoma appears to be stable on follow-up CT scan with no evidence of new bleeding related to recent fall. MAINTENANCE ISSUES -DVT prophylaxis; SCUDs -GI prophylaxis; not indicated -Vergara catheter; not indicated -Nutrition; regular diet -Nicotine dependence; not required CODE STATUS-FULL CODE ADMISSION STATUS-patient will be admitted to inpatient status, expect at least a 2 night hospital stay for evaluation and management of problems as outlined above. At the time of this admission I do not reasonably expected evaluation and management of this problem will require more than a 96 hour hospital stay. DISPOSITION-anticipate discharge to home after the hospital stay. PRIMARY CARE PROVIDER-Rosa Ball
[2020-06-02] MEDS: Sotalol 80 MG Tab PO SCH ×2 (09:51→21:00)
[2020-06-02] MEDS: Digoxin 125 MCG Tab PO SCH (13:36)
[2020-06-02] MEDS: Melatonin 3 MG Tab PO SCH (21:01)
[2020-06-03 07:00] VITALS: BP 125/65; PULSE 59
[2020-06-03] MEDS: Sotalol 80 MG Tab PO SCH (09:40)
[2020-06-03] MEDS: Magnesium Oxide 400 MG Tab PO SCH (09:40)
--- NOTE | 2020-06-03 09:58 | PCM.DCSUM1 ---
Discharge Summary - Hospital Course Brief History: 84-year-old female with history of mild Alzheimer's dementia, chronic atrial fibrillation who presented with weakness secondary to nausea with vomiting. She was admitted for management of hyponatremia, dehydration probably secondary to an adverse reaction to her donepezil. Diagnosis: Stroke: No - Discharge Data Discharge Date: 06/03/20 Discharge Disposition: DC/Tfer to SNF 03 Condition: Good - Referral to Home Health Primary Care Physician: NATHEN Wolfe - Discharge Diagnosis/Problem(s) (1) Hyponatremia SNOMED Code(s): 93828754 ICD Code: E87.1 - HYPO-OSMOLALITY AND HYPONATREMIA Status: Acute Current Visit: Yes (2) Nausea and vomiting SNOMED Code(s): 16524150 ICD Code: R11.2 - NAUSEA WITH VOMITING, UNSPECIFIED Status: Acute Current Visit: Yes Qualifiers: Vomiting type: unspecified Vomiting Intractability: non-intractable Qualified Code(s): R11.2 - Nausea with vomiting, unspecified (3) Dehydration, moderate SNOMED Code(s): 4817956181490 ICD Code: E86.0 - DEHYDRATION Status: Acute Current Visit: Yes (4) Chronic subdural hematoma SNOMED Code(s): 062600495, 785572126 ICD Code: I62.03 - NONTRAUMATIC CHRONIC SUBDURAL HEMORRHAGE Status: Chronic Current Visit: Yes (5) Alzheimer's dementia without behavioral disturbance SNOMED Code(s): 25917827 ICD Code: G30.9 - ALZHEIMER'S DISEASE, UNSPECIFIED; F02.80 - DEMENTIA IN OTH DISEASES CLASSD ELSWHR W/O BEHAVRL DISTURB Status: Chronic Current Visit: Yes Qualifiers: Alzheimer's disease onset: late-onset Qualified Code(s): G30.1 - Alzheimer's disease with late onset; F02.80 - Dementia in other diseases classified elsewhere without behavioral disturbance (6) Chronic atrial fibrillation SNOMED Code(s): 960987784 ICD Code: I48.20 - CHRONIC ATRIAL FIBRILLATION, UNSPECIFIED Status: Chronic Current Visit: Yes - Patient Summary/Data Consults: Consultations 05/31/20 12:26 Consult to Physical Therapy [PT Evaluation and Treatment] [CONS] Routine Please Evaluate and Treat. PT Reason for Consult: Weakness This query below is only for informational purposes and is not editable. Admission Diagnosis/Problem: Hyponatremia Hospital Course: Iris presented to the emergency room with weakness, nausea and vomiting. Work- up in the emergency room revealed hyponatremia and moderate dehydration. Head CT also showed a small subdural hematoma that was thought to be chronic. She w as started on IV fluids and admitted to the hospital for further management. Her donepezil was stopped as this was suspected to be the culprit medication since her symptoms started shortly after this medication was started. Over the next couple of days we saw steady improvement in her symptoms with resolution of the nausea and vomiting. She improved with IV fluid hydration. She has worked with physical therapy but does remain somewhat weak requiring the assist of one. Her sodium level has improved to the low 130s. She would benefit from subacute rehab before returning to her previous assisted living facility versus possibly a transition to a memory care unit. Discussions were held during the hospital stay about the subdural hematoma that was discovered during the work-up. A repeat head CT showed that there was no progression and it was felt that this was chronic. The patient had been noted to have a fall about 1 month prior. The patient remains a high fall risk. Discussions with the family have led to the decision to discontinue her systemic anticoagulation. At this point we feel that the risks of the medication outweigh the benefits. There have been no behavior issues during the course of the hospital stay. - Patient Instructions Diet: Regular Diet as Tolerated Activity: As Tolerated Driving: Do Not Drive Showering/Bathing: May Shower Notify Provider of: Nausea and/or Vomiting Other/Special Instructions: 1. You were in the hospital for dehydration secondary to nausea with vomiting and complicated by a low sodium level. We suspect this was caused by your donepezil and we have stopped this medication. Your condition has been improving with hydration. I do recommend subacute rehab to improve your strength and endurance after leaving the hospital. 2. Stop taking apixaban, donepezil and furosemide. 3. Code status - FULL CODE. 4. Diet - regular geriatric. 5. I have placed a referral to physical and occupational therapy to provide strengthening exercises while you are at the subacute rehab facility. - Discharge Plan *PRESCRIPTION DRUG MONITORING PROGRAM REVIEWED*: Not Applicable *COPY OF PRESCRIPTION DRUG MONITORING REPORT IN PATIENT [place]: Not Applicable Prescriptions/Med Rec: Melatonin 5 mg SL BEDTIME #30 tab.subl Acetaminophen [Tylenol] 650 mg PO Q4H PRN #200 tablet PRN Reason: Pain (Mild 1-3)/fever Home Medications: Home Meds Digoxin 250 mcg PO DAILY 04/21/14 [History] Magnesium Oxide 250 mg PO DAILY 04/30/20 [History] Sotalol HCl [Sotalol] 80 mg PO BID 04/30/20 [History] Acetaminophen [Tylenol] 650 mg PO Q4H PRN #200 tablet 06/03/20 [Rx] Melatonin 5 mg SL BEDTIME #30 tab.subl 06/03/20 [Rx] Oxygen Therapy Mode: Room Air Patient Handouts: Dehydration, Elderly, [id number] Referrals: Monica Ball PA [Primary Care Provider] - (f/u 1-2 weeks -follow-up hospital stay for nausea with vomiting, dehydration dementia) - Discharge Summary/Plan Comment DC Time >30 min.: Yes (35-new NH discharge ) - Patient Data Vitals - Most Recent: Last Vital Signs Temp 35.5 C L 06/03/20 06:59 Pulse 59 L 06/03/20 09:40 Resp 16 06/03/20 06:59 BP 125/65 06/03/20 09:40 Pulse Ox 97 06/03/20 06:59 Orthostatic Blood Pressure [ 125/68 Standing] Orthostatic Blood Pressure [ 113/60 Sitting] Orthostatic Blood Pressure [ 107/60 Supine] Weight - Most Recent: 47.899 kg I&O - Last 24 hours: Intake & Output 06/02/20 06/03/20 06/03/20 22:59 06:59 14:59 Intake Total 636 596 600 Output Total 300 Balance 636 596 300 Lab Results - Last 24 hrs: Laboratory Results - last 24 hr 06/03/20 Range/Units 04:10 Sodium 129 L (140-148) mmol/L Potassium 4.7 (3.6-5.2) mmol/L Chloride 96 L (100-108) mmol/L Carbon Dioxide 26 (21-32) mmol/L Anion Gap 11.7 (5.0-14.0) mmol/L BUN 12 D (7-18) mg/dL Creatinine 0.7 (0.6-1.0) mg/dL Est Cr Clr Drug Dosing 46.85 mL/min Estimated GFR (MDRD) > 60 (>60) Glucose 98 (74-106) mg/dL Calcium 8.4 L (8.5-10.1) mg/dL Med Orders - Current: Current Medications Acetaminophen (Tylenol) 650 mg PO Q4H PRN PRN Reason: Pain (Mild 1-3)/fever Last Admin: 06/01/20 21:33 Dose: 650 mg Documented by: Digoxin (Lanoxin) 250 mcg PO DAILY@1300 [facility] Last Admin: 06/02/20 13:36 Dose: 250 mcg Documented by: Magnesium Oxide (Magnesium Oxide) 400 mg PO BID [facility] Last Admin: 06/03/20 09:40 Dose: 400 mg Documented by: Melatonin (Melatonin) 9 mg PO BEDTIME [facility] Last Admin: 06/02/20 21:01 Dose: 9 mg Documented by: Ondansetron HCl (Zofran) 4 mg IV Q4H PRN PRN Reason: Nausea/Vomiting Sodium Chloride (Saline Flush) 10 ml FLUSH ASDIRECTED PRN PRN Reason: Keep Vein Open Sotalol HCl (Betapace) 80 mg PO BID [facility] Last Admin: 06/03/20 09:40 Dose: 80 mg Documented by: Discontinued Medications Apixaban (Eliquis) 2.5 mg PO BID [facility] Donepezil HCl (Aricept) 5 mg PO DAILY [facility] Sodium Chloride (Normal Saline) 1,000 mls @ 250 mls/hr IV ASDIRECTED [facility] Last Admin: 05/31/20 09:09 Dose: 250 mls/hr Documented by: Sodium Chloride (Normal Saline) 1,000 mls @ 125 mls/hr IV ASDIRECTED [facility] Sodium Chloride (Sodium Chloride 0.45%) 1,000 mls @ 100 mls/hr IV ASDIRECTED [facility] Last Admin: 05/31/20 13:02 Dose: 100 mls/hr Documented by: Sodium Chloride (Normal Saline) 1,000 mls @ 100 mls/hr IV ASDIRECTED [facility] Last Admin: 05/31/20 15:24 Dose: 100 mls/hr Documented by: Dextrose/Water (Dextrose 5% In Water) 1,000 mls @ 100 mls/hr IV ASDIRECTED [facility] Last Admin: 06/01/20 06:45 Dose: 100 mls/hr Documented by: Magnesium Sulfate (Magnesium Sulfate In Water 2 Gm/50 Ml) 2 gm in 50 mls @ 25 mls/hr IV ONETIME ONE Stop: 06/01/20 10:59 Last Admin: 06/01/20 08:26 Dose: 25 mls/hr Documented by: Magnesium Oxide (Magnesium Oxide) 400 mg PO DAILY [facility] Stop: 06/01/20 10:00 Last Admin: 06/01/20 08:09 Dose: 400 mg Documented by: Magnesium Oxide (Magnesium Oxide) 400 mg PO BID [facility] Ondansetron HCl (Zofran) 4 mg IVPUSH ONETIME ONE Stop: 05/31/20 08:53 Last Admin: 05/31/20 09:09 Dose: 4 mg Documented by: Potassium Chloride (Klor-Con M20) 40 meq PO ONETIME ONE Stop: 06/02/20 09:01 Last Admin: 06/02/20 09:51 Dose: 40 meq Documented by: *Q Meaningful Use (DIS) - VTE *Q VTE Pharmacological Contraindications *Q: High INR Value
== END 2020-06-03 12:20 | DRG 640 ==
LOC: JP.ED 08:01 → JP.ICU 10:00 → JP.MS 06-01 13:43
PROVIDERS: ADMIT Hospitalist; ATTEND Hospitalist
DX: E87.1 Hypo-osmolality and hyponatremia (principal); I62.03 Nontraumatic chronic subdural hemorrhage; R23.1 Pallor; I48.20 Chronic atrial fibrillation, unspecified; E86.0 Dehydration; K21.9 Gastro-esophageal reflux disease without esophagitis; F02.80 Dementia in other diseases classified elsewhere, unspecified severity, without behavioral disturbance, psychotic disturbance, mood disturbance, and anxiety; H91.90 Unspecified hearing loss, unspecified ear; I48.91 Unspecified atrial fibrillation; T44.1X5A Adverse effect of other parasympathomimetics [cholinergics], initial encounter; G30.1 Alzheimer's disease with late onset; Z79.899 Other long term (current) drug therapy; Z88.6 Allergy status to analgesic agent; F03.90 Unspecified dementia, unspecified severity, without behavioral disturbance, psychotic disturbance, mood disturbance, and anxiety; G96.08 Other cranial cerebrospinal fluid leak; Z88.5 Allergy status to narcotic agent; Z88.1 Allergy status to other antibiotic agents; Z91.040 Latex allergy status; Z88.8 Allergy status to other drugs, medicaments and biological substances; Z79.01 Long term (current) use of anticoagulants; Z95.0 Presence of cardiac pacemaker; Z91.81 History of falling
CPT/HCPCS: 36415; 70450 ×2; 80053; 81001; 82550; 85025; 96374; 99285 ×2; J2405; J7030; 80048; 80162; 83735; 84295; 84443; 97110-GP; 97161-GP; 97530-GP; 99221; 99231; 99232; 99239; A9270-GY; J3475; J3490; J7060

== ENCOUNTER 2020-08-23 03:24 | Emergency (ER) | payer MEDICARE, BC ==
--- NOTE | 2020-08-23 04:04 | EDM.PDOC ---
ED HPI GENERAL MEDICAL PROBLEM - General Chief Complaint: Head Injury Stated Complaint: MEDICAL VIA NORTH Time Seen by Provider: 08/23/20 03:51 Source of Information: Reports: EMS, [facility] Records - History of Present Illness INITIAL COMMENTS - FREE TEXT/NARRATIVE: Iris is an 85-year-old female from the memory care unit at [facility] who presents to the ED via [facility] after being found on the floor with a head injury tonight. According to nursing staff they did a 1 AM check on her and she was fine they went in to check her at 2 AM and she was found on the floor. It is unknown why it took 2 more hours before the family decided to send her in to the ED for evaluation. They believe that the patient has Lewy body dementia and has been having more frequent falls after she has visual hallucinations of a man in her room and she tries to get out of her room to avoid him. She does have a sizable occipital hematoma and some dried blood in the hair. The patient is complaining of pain in the occiput from the fall. She also complains of pain down her entire spine, in her right thigh, in her right arm and right shoulder. She had told nursing that the only place she was having pain was the back of her head. She noted to have chronic right shoulder pain on previous encounters. Treatments COAL CAGER: Reports: See EMS Report Middle Posterior Head Pain Score (Numeric/FACES): 3 - Related Data Allergies Allergy/AdvReac Type Severity Reaction Status Date / Time aspirin [From Percodan] Allergy Cannot Verified 08/23/20 03:39 Remember codeine Allergy Nausea Verified 08/23/20 03:39 erythromycin base Allergy Nausea and Verified 08/23/20 03:39 [Erythromycin Base] Vomiting latex Allergy Itching Verified 08/23/20 03:39 oxycodone HCl [From Percodan] Allergy Cannot Verified 08/23/20 03:39 Remember oxycodone terephthalate Allergy Cannot Verified 08/23/20 03:39 [From Percodan] Remember Jchmdrj-Zvb-Noh Reductase Allergy Cannot Verified 08/23/20 03:58 Inhibitor Remember Home Meds: Home Meds Digoxin 250 mcg PO DAILY 04/21/14 [History] Magnesium Oxide 250 mg PO DAILY 04/30/20 [History] Sotalol HCl [Sotalol] 80 mg PO BID 04/30/20 [History] Acetaminophen [Tylenol] 650 mg PO Q4H PRN #200 tablet 06/03/20 [Rx] Melatonin 5 mg SL BEDTIME #30 tab.subl 06/03/20 [Rx] Loperamide [Imodium] 2 mg PO Q8H 08/23/20 [History] busPIRone [Buspar] 5 mg PO DAILY 08/23/20 [History] Past Medical History HEENT History: Reports: Hard of Hearing Cardiovascular History: Reports: Afib, Pacemaker Gastrointestinal History: Reports: GERD Psychiatric History: Reports: Dementia Hematologic History: Reports: Anticoagulation Therapy - Past Surgical History Cardiovascular Surgical History: Reports: Pacer ED ROS GENERAL - Review of Systems Review Of Systems: See Below Constitutional: Reports: No Symptoms HEENT: Reports: Other (Hematoma and bleeding of the scalp on the occiput.) Respiratory: Reports: No Symptoms Cardiovascular: Reports: No Symptoms Endocrine: Reports: No Symptoms GI/Abdominal: Reports: No Symptoms : Reports: No Symptoms Musculoskeletal: Reports: Shoulder Pain (Left shoulder), Arm Pain (Left arm), Back Pain, Other (Right thigh) Skin: Reports: No Symptoms Neurological: Reports: Other (Probable Lewy body dementia with frequent falling) Psychiatric: Reports: Hallucinations (Visual hallucinationspatient hallucinates that a man is in room at the memory care center.) Hematologic/Lymphatic: Reports: No Symptoms Immunologic: Reports: No Symptoms ED EXAM, HEAD INJURY - Physical Exam Exam: See Below Exam Limited By: No Limitations General Appearance: Alert, No Apparent Distress Head: Normocephalic, Scalp Lacerations (Superficial laceration left occiput), Scalp Hematoma (Left occiput), Scalp Tenderness (Of the occiput). No: Active Bleeding, Zabala's Sign, Raccoon Eyes Nexus Criteria: No: Posterior, Midline Cervical Tenderness, Evidence of Intoxication, Altered Level of Consciousness, Focal Neurological Deficit, Painful Distraction Injuries Eyes: Bilateral Eye: EOMI, PERRL Ears: Normal External Exam, Normal Canal, Hearing Grossly Normal, Normal TMs Nose: Normal Inspection Throat/Mouth: Normal Inspection, Normal Oropharynx, Normal Voice, No Airway Compromise Neck: Non-Tender, Full Range of Motion Respiratory: No Respiratory Distress, Lungs Clear, Normal Breath Sounds Cardiovascular: Normal Peripheral Pulses, Regular Rate, Rhythm, No Murmur GI/Abdominal Exam: Normal Bowel Sounds, Soft, Non-Tender Back Exam: Normal Inspection, Full Range of Motion Extremities: Normal Inspection, Normal Range of Motion Neurologic: No Motor/Sensory Deficits, Alert - [place] Coma Score Best Eye Response ([place]): (4) Open Spontaneously Best Verbal Response ([place]): (4) Confused Conversation Best Motor Response ([place]): (6) Obeys Commands Pamela Total: 14 (Patient has Lewy body dementia) ED LACERATION/WOUND & KWAME PROC - Laceration/Wound Repair Left Posterior Head Lac/wound length in cm: 3.3 Appearance: Superficial, Linear Distal NVT: Neuro & Vascular Intact Skin Prep: Chlorhexidine (Hibiciens) Exploration/Debridement/Repair: Wound Explored, In a Bloodless Field, Explored to Base Closed with: Dermabond Tetanus Status Addressed: Yes Complications: No Course - Vital Signs Last Recorded V/S: Last Vital Signs Temp 35.8 C L 08/23/20 03:42 Pulse 91 08/23/20 04:25 Resp 18 08/23/20 03:42 BP 155/85 H 08/23/20 04:25 Pulse Ox 94 L 08/23/20 03:42 - Orders/Labs/Meds Orders: Active Orders 24 hr Category Date Time Status Head wo Cont [CT] Stat Exams 08/23/20 03:51 Ordered INR,PT,PROTHROMBIN TIME [COAG] Stat Lab 08/23/20 03:51 Ordered PTT,PARTIAL THROMBOPLSTIN TIME [COAG] Stat Lab 08/23/20 03:51 Ordered Labs: Laboratory Tests 08/23/20 08/23/20 Range/Units 04:05 04:05 WBC 20.4 H (4.5-11.0) K/uL RBC 4.60 (3.30-5.50) M/uL Hgb 13.8 (12.0-15.0) g/dL Hct 40.6 (36.0-48.0) % MCV 88 (80-98) fL MCH 30 (27-31) pg MCHC 34 (32-36) % Plt Count 405 H (150-400) K/uL Neut % (Auto) 83 H (36-66) % Lymph % (Auto) 9 L (24-44) % Burt % (Auto) 8 H (2-6) % Eos % (Auto) 0 L (2-4) % Baso % (Auto) 0 (0-1) % Sodium 131 L (140-148) mmol/L Potassium 3.8 (3.6-5.2) mmol/L Chloride 93 L (100-108) mmol/L Carbon Dioxide 29 (21-32) mmol/L Anion Gap 12.8 (5.0-14.0) mmol/L BUN 20 H D (7-18) mg/dL Creatinine 0.8 (0.6-1.0) mg/dL Est Cr Clr Drug Dosing TNP Estimated GFR (MDRD) > 60 (>60) Glucose 118 H (74-106) mg/dL Calcium 8.6 (8.5-10.1) mg/dL - Radiology Interpretation Free Text/Narrative:: I reviewed the CT of the head without contrast demonstrating a large left occipital hematoma without evidence of any cranial abnormalities or acute intracranial abnormalities. There is no hemorrhage, mass, or midline shift. - Re-Assessments/Exams Free Text/Narrative Re-Assessment/Exam: 08/23/20 04:26 the exam is unremarkable for any specific findings other than the large scalp hematoma and superficial laceration over the left occiput. Her neck is supple and nontender. The right shoulder and arm pain I believe are chronic but she has no diminished range of motion. There is no bruising noted. I do not see any abnormalities in the right thigh. There is no midline tenderness with palpation of the spine. CT of the head without contrast failed to demonstrate any acute intracranial abnormalities. There is a large left occipital hematoma noted. At this time I believe the patient is suitable for discharge home. Departure - Departure Time of Disposition: 04:31 Disposition: DC/Tfer to Longterm Care 63 Clinical Impression: Dementia Qualifiers: Dementia type: Lewy body dementia Dementia behavioral disturbance: with behavioral disturbance Qualified Code(s): G31.83 - Dementia with Lewy bodies; F02.81 - Dementia in other diseases classified elsewhere with behavioral disturbance Scalp hematoma Qualifiers: Encounter type: initial encounter Qualified Code(s): S00.03XA - Contusion of scalp, initial encounter Fall from standing Qualifiers: Encounter type: initial encounter Qualified Code(s): W19.XXXA - Unspecified fall, initial encounter Scalp laceration Qualifiers: Encounter type: initial encounter Qualified Code(s): S01.01XA - Laceration without foreign body of scalp, initial encounter - Discharge Information Instructions: Facial or Scalp Contusion, Mgqn-ir-Mhts, Dementia, Vzns-ji-Gdyq, Head Injury, Adult, Jemx-ia-Sujg, Laceration Care, Adult, Cdxj-vh-Gzrg Referrals: Monica Ball PA [Primary Care Provider] - Forms: ED Department Discharge Care Plan Goals: Your evaluation today showed a sizable collection of blood under the scalp due to your fall. This will likely be tender for the next couple of days. We did close the superficial wound using Dermabond (skin glue). Please do not pick at this or you will start to bleed from the wound again. Nursing staff should be alert to your potential to fall and should take measures to prevent this. May include the use of a bed alarm. Sepsis Event Note (ED) - Evaluation Sepsis Screening Result: No Definite Risk - Focused Exam Vital Signs: Vital Signs Temp Pulse Resp BP Pulse Ox 08/23/20 04:25 91 155/85 H 08/23/20 03:42 35.8 C L 93 18 150/82 H 94 L - Problem List & Annotations (1) Fall from standing SNOMED Code(s): 5685059 Code(s): W19.XXXA - UNSPECIFIED FALL, INITIAL ENCOUNTER Status: Acute Priority: Medium Current Visit: Yes Qualifiers: Encounter type: initial encounter Qualified Code(s): W19.XXXA - Unspecified fall, initial encounter (2) Scalp hematoma SNOMED Code(s): 579847389 Code(s): S00.03XA - CONTUSION OF SCALP, INITIAL ENCOUNTER Status: Acute Priority: Medium Current Visit: Yes Qualifiers: Encounter type: initial encounter Qualified Code(s): S00.03XA - Contusion of scalp, initial encounter (3) Scalp laceration SNOMED Code(s): 508102615 Code(s): S01.01XA - LACERATION WITHOUT FOREIGN BODY OF SCALP, INITIAL ENCOUNTER Status: Acute Priority: Medium Current Visit: Yes Qualifiers: Encounter type: initial encounter Qualified Code(s): S01.01XA - Laceration without foreign body of scalp, initial encounter (4) Dementia SNOMED Code(s): 68467019 Code(s): F03.90 - UNSPECIFIED DEMENTIA WITHOUT BEHAVIORAL DISTURBANCE Status: Chronic Priority: Medium Current Visit: Yes Qualifiers: Dementia type: Lewy body dementia Dementia behavioral disturbance: with behavioral disturbance Qualified Code(s): G31.83 - Dementia with Lewy bodies; F02.81 - Dementia in other diseases classified elsewhere with behavioral disturbance - Problem List Review Problem List Initiated/Reviewed/Updated: Yes - My Orders Last 24 Hours: My Active Orders 08/23/20 03:51 Head wo Cont [CT] Stat INR,PT,PROTHROMBIN TIME [COAG] Stat PTT,PARTIAL THROMBOPLSTIN TIME [COAG] Stat - Assessment/Plan Last 24 Hours: My Active Orders 08/23/20 03:51 Head wo Cont [CT] Stat INR,PT,PROTHROMBIN TIME [COAG] Stat PTT,PARTIAL THROMBOPLSTIN TIME [COAG] Stat
[2020-08-23 04:25] VITALS: BP 155/85; PULSE 91
--- NOTE | 2020-08-23 04:34 | CRLCT ---
INDICATION: Fall with head trauma TECHNIQUE: Head CT without contrast. COMPARISON: June 01, 2020 FINDINGS: CSF spaces: Within normal limits for age. Brain parenchyma: There are nonspecific low attenuation white matter changes consistent with chronic microvascular disease. No sign of mass, hemorrhage, or midline shift. Skull base and calvarium: The visualized paranasal sinuses and mastoid air cells demonstrate no acute or significant findings. The visualized orbits are grossly unremarkable. No skull fractures. There is intracranial atherosclerosis. Left posterolateral scalp contusion. IMPRESSION: 1. No acute intracranial hemorrhage or skull fracture. Left posterior lateral scalp contusion. 2. Nonspecific white matter disease, typical of chronic microvascular disease. Please note that all CT scans at this facility use dose modulation, iterative reconstruction, and/or weight-based dosing when appropriate to reduce radiation dose to as low as reasonably achievable. Dictated by Veronique Castanon MD @ 08/23/2020 4:33:[address] Veronique Castanon @ Aug 23 2020 4:33AM
[2020-08-23] MEDS ORDERED: Acetaminophen 325 MG Tab PO ONE (04:56)
== END 2020-08-23 05:27 ==
LOC: JP.ED 03:24
DX: S01.01XA Laceration without foreign body of scalp, initial encounter (principal); G31.83 Neurocognitive disorder with Lewy bodies; F02.81 Dementia in other diseases classified elsewhere, unspecified severity, with behavioral disturbance; Z88.8 Allergy status to other drugs, medicaments and biological substances; Z88.1 Allergy status to other antibiotic agents; Z88.5 Allergy status to narcotic agent; Z91.040 Latex allergy status; W06.XXXA Fall from bed, initial encounter; W22.8XXA Striking against or struck by other objects, initial encounter
CPT/HCPCS: 12002; 36415; 70450; 80048; 85025; 85610; 85730; 99284; A9270

== ENCOUNTER 2020-08-26 05:00 | Emergency (ER) | payer MEDICARE, BC ==
[2020-08-26 05:13] VITALS: BP 121/53; PULSE 62
--- NOTE | 2020-08-26 05:54 | EDM.PDOC ---
ED HPI GENERAL MEDICAL PROBLEM - General Chief Complaint: Head Injury Stated Complaint: FALL VIA NORTH Time Seen by Provider: 08/26/20 05:34 Source of Information: Reports: Patient, EMS, RN Notes Reviewed History Limitations: Reports: No Limitations - History of Present Illness INITIAL COMMENTS - FREE TEXT/NARRATIVE: 85-year-old female presents emergency department today via EMS services following a fall. She is a resident of memory care unit current working diagnosis is Lewy body dementia. She recently had a fall 5 days ago landed on the occipital region of her head large scalp hematoma at that time. CT scan was negative for any acute process. This particular event she fell again today now she lands on the frontal portion right side large hematoma. She states that "Dk made her do it" she states that Dk Donald is coming to her in her's. She is not having visual hallucinations, at this time she denies any other symptoms other than the head injury Head Pain Score (Numeric/FACES): 10 - Related Data Allergies Allergy/AdvReac Type Severity Reaction Status Date / Time aspirin [From Percodan] Allergy Cannot Verified 08/26/20 05:08 Remember codeine Allergy Nausea Verified 08/26/20 05:08 erythromycin base Allergy Nausea and Verified 08/26/20 05:08 [Erythromycin Base] Vomiting latex Allergy Itching Verified 08/26/20 05:08 oxycodone HCl [From Percodan] Allergy Cannot Verified 08/26/20 05:08 Remember oxycodone terephthalate Allergy Cannot Verified 08/26/20 05:08 [From Percodan] Remember Lakpval-Mip-Wfq Reductase Allergy Cannot Verified 08/26/20 05:08 Inhibitor Remember Home Meds: Home Meds Digoxin 250 mcg PO DAILY 04/21/14 [History] Magnesium Oxide 250 mg PO DAILY 04/30/20 [History] Sotalol HCl [Sotalol] 80 mg PO BID 04/30/20 [History] Acetaminophen [Tylenol] 650 mg PO Q4H PRN #200 tablet 06/03/20 [Rx] Melatonin 5 mg SL BEDTIME #30 tab.subl 06/03/20 [Rx] Loperamide [Imodium] 2 mg PO Q8H 08/23/20 [History] busPIRone [Buspar] 5 mg PO DAILY 08/23/20 [History] QUEtiapine [SEROquel] 12.5 mg PO BID 08/26/20 [History] Past Medical History HEENT History: Reports: Hard of Hearing Cardiovascular History: Reports: Afib, High Cholesterol, Pacemaker, Other (See Below) Other Cardiovascular History: sinoatrial node dysfunction Gastrointestinal History: Reports: GERD 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: Psychiatric History: Reports: Dementia Hematologic History: Reports: Anticoagulation Therapy - Infectious Disease History Infectious Disease History: Reports: Chicken Pox, Measles, Mumps - Past Surgical History Cardiovascular Surgical History: Reports: Pacer Social & Family History - Family History Family Medical History: No Pertinent Family History - Tobacco Use Tobacco Use Status *Q: Never Tobacco User - Caffeine Use Caffeine Use: Reports: None - Recreational Drug Use Recreational Drug Use: No ED ROS GENERAL - Review of Systems Review Of Systems: See Below Constitutional: Reports: No Symptoms HEENT: Reports: No Symptoms Respiratory: Reports: No Symptoms Cardiovascular: Reports: No Symptoms GI/Abdominal: Reports: No Symptoms Neurological: Reports: No Symptoms ED EXAM, HEAD INJURY - Physical Exam Exam: See Below Exam Limited By: No Limitations General Appearance: Alert, No Apparent Distress Head: Normocephalic, Scalp Ecchymosis, Scalp Hematoma, Scalp Tenderness Nexus Criteria: No: Posterior, Midline Cervical Tenderness, Evidence of Intoxication, Altered Level of Consciousness, Focal Neurological Deficit, Painful Distraction Injuries Eyes: Bilateral Eye: EOMI, Normal Inspection, PERRL Throat/Mouth: Normal Inspection, Normal Lips, Normal Teeth, Normal Gums, Normal Oropharynx, Normal Voice, No Airway Compromise Neck: Non-Tender, Full Range of Motion, Normal Alignment, Normal Inspection Respiratory: No Respiratory Distress, Lungs Clear, Normal Breath Sounds, No Accessory Muscle Use, Chest Non-Tender Cardiovascular: Regular Rate, Rhythm, No Murmur GI/Abdominal Exam: Soft, Non-Tender Extremities: Normal Inspection, Non-Tender, Pedal Edema Neurologic: No Motor/Sensory Deficits, Alert, Normal Mood/Affect - [place] Coma Score Best Eye Response ([place]): (4) Open Spontaneously Best Verbal Response ([place]): (5) Oriented Best Motor Response ([place]): (6) Obeys Commands Course - Vital Signs Last Recorded V/S: Last Vital Signs Temp 97.6 F 08/26/20 05:11 Pulse 62 08/26/20 05:11 Resp 15 08/26/20 05:11 BP 121/53 L 08/26/20 05:11 Pulse Ox 94 L 08/26/20 05:11 Departure - Departure Time of Disposition: 06:39 Disposition: DC/[facility] to [facility] Condition: Poor Clinical Impression: Fall Qualifiers: Encounter type: initial encounter Qualified Code(s): W19.XXXA - Unspecified fall, initial encounter Scalp hematoma Qualifiers: Encounter type: initial encounter Qualified Code(s): S00.03XA - Contusion of scalp, initial encounter Head injury Qualifiers: Encounter type: initial encounter Qualified Code(s): S09.90XA - Unspecified injury of head, initial encounter - Discharge Information Instructions: Head Injury, Adult Referrals: Monica Ball PA [Primary Care Provider] - Forms: ED Department Discharge Additional Instructions: Recommend fall precautions, please followup with your primary care provider in 3-5 days if not better, please call return to the emergency department with worsening of symptoms. Sepsis Event Note (ED) - Evaluation Sepsis Screening Result: No Definite Risk - Focused Exam Vital Signs: Vital Signs Temp Pulse Resp BP Pulse Ox 08/26/20 05:11 97.6 F 62 15 121/53 L 94 L - Assessment/Plan Plan: Assessment Acuity = acute Site and laterality = head injury complicated patient with known history of dementia in the memory care unit Etiology = secondary to fall Manifestations = none Location of injury = Home Lab values = CT scan of the head describes no acute process other than hematoma frontal scalp Plan Discharged back to the memory care unit fall precautions This note was dictated using [employer] voice recognition software please call with any questions on syntax or grammar.
--- NOTE | 2020-08-26 06:31 | CRLCT ---
Indication: Fall, trauma after recent fall Technique: Volumetric multidetector CT images of the head were obtained without the administration of low osmolar intravenous contrast. Comparison: CT head August 23, 2020 Findings: There is no intra-axial or extra-axial fluid collection. There is no mass effect or midline shift. There is age-related cortical atrophy with mild sulcal widening and ex vacuo dilatation of the lateral ventricles. There are chronic small vessel disease changes in the subcortical and periventricular white matter without lost bonilla-white differentiation. The orbits and their contents are grossly within normal limits. There is demonstration of a new right frontal subgaleal soft tissue hematoma and laceration. There is healing of previously seen left posterior vertex subgaleal soft tissue hematoma. The underlying bony calvarium is grossly intact. The paranasal sinuses are clear. The mastoid air cells are well aerated. Impression: New right frontal subgaleal soft tissue hematoma without evidence of acute intracranial abnormality. Stable age-related changes. Progression of healing previously seen left posterior vertex soft tissue laceration. Please note that all CT scans at this facility use dose modulation, iterative reconstruction, and/or weight-based dosing when appropriate to reduce radiation dose to as low as reasonably achievable. Dictated by Marcel Caraballo MD @ 08/26/2020 6:29:[address] Marcel Caraballo @ Aug 26 2020 6:29AM
[2020-08-26] MEDS: Bacitracin Oint 1 GM U/D Packet TOP ONE (08:15)
== END 2020-08-26 08:29 ==
LOC: JP.ED 05:00
DX: S00.03XA Contusion of scalp, initial encounter (principal); E78.00 Pure hypercholesterolemia, unspecified; Z95.0 Presence of cardiac pacemaker; Z88.5 Allergy status to narcotic agent; Z88.8 Allergy status to other drugs, medicaments and biological substances; Z91.040 Latex allergy status; Z88.1 Allergy status to other antibiotic agents; W18.09XA Striking against other object with subsequent fall, initial encounter
CPT/HCPCS: 70450; 99284-25

== ENCOUNTER 2020-08-27 09:23 | Emergency (ER) | payer MEDICARE, BC ==
[2020-08-27] MEDS ORDERED: Sodium Chloride 0.9% 10 ML Syringe FLUSH PRN (09:45)
[2020-08-27] MEDS ORDERED: Acetaminophen 500 MG Tab PO ONE (09:45)
[2020-08-27] MEDS ORDERED: Lidocaine 1% with EPINEPHrine 1:100,000 50 ML MDV SUBCUT STA (09:49)
--- NOTE | 2020-08-27 09:55 | EDM.PDOC ---
ED HPI GENERAL MEDICAL PROBLEM - General Chief Complaint: Laceration Stated Complaint: FELL AND HIT HEAD Time Seen by Provider: 08/27/20 09:40 Source of Information: Reports: Patient, Family, Old Records, RN History Limitations: Reports: No Limitations - History of Present Illness INITIAL COMMENTS - FREE TEXT/NARRATIVE: 85 yo female with mild Lewy Body dementia was seen last night here in the ER after a fall. She had a head CT scan without pathology noted and she was sent back. She received a tetanus vaccine at that visit. She reports auditory hallucinations. A daughter who is here says Iris has had an occasional wet sounding cough, but no fever. Today Iris stood up when she had an auditory hallucination and fell over incurring an occipital scalp laceration. Here via EM S. No LOC. Reports a REID, but says its not worse than last night. Is not on any anticoagulants. She has no neck pain. Denies nausea. No other reported injuries from this fall. Onset: Today, Sudden Onset Date: 08/27/20 Duration: Minutes:, Constant Location: Reports: Head (occiput) Quality: Reports: Ache (headache, mild) Severity: Mild Improves with: Reports: None Worsens with: Reports: None Context: Reports: Trauma (apparently REID is from last evening's fall) Associated Symptoms: Reports: Confusion (mild at times from her dementia), Cough (per daughter), Headaches (since last evening's fall). Denies: Diaphoresis, Fever/Chills, Nausea/Vomiting, Seizure, Shortness of Breath Treatments RELATIONSHIP CONSULTANT: Reports: Other (see below) (none) Left Forehead Pain Score (Numeric/FACES): 10 - Related Data Allergies Allergy/AdvReac Type Severity Reaction Status Date / Time aspirin [From Percodan] Allergy Cannot Verified 08/27/20 09:34 Remember codeine Allergy Nausea Verified 08/27/20 09:34 erythromycin base Allergy Nausea and Verified 08/27/20 09:34 [Erythromycin Base] Vomiting latex Allergy Itching Verified 08/27/20 09:34 oxycodone HCl [From Percodan] Allergy Cannot Verified 08/27/20 09:34 Remember oxycodone terephthalate Allergy Cannot Verified 08/27/20 09:34 [From Percodan] Remember Oumvzwq-Lvm-Cve Reductase Allergy Cannot Verified 08/27/20 09:34 Inhibitor Remember Home Meds: Home Meds Digoxin 250 mcg PO DAILY 04/21/14 [History] Magnesium Oxide 250 mg PO DAILY 04/30/20 [History] Sotalol HCl [Sotalol] 80 mg PO BID 04/30/20 [History] Acetaminophen [Tylenol] 650 mg PO Q4H PRN #200 tablet 06/03/20 [Rx] Loperamide [Imodium] 2 mg PO Q8H 08/23/20 [History] busPIRone [Buspar] 5 mg PO BID 08/23/20 [History] QUEtiapine [SEROquel] 12.5 mg PO QAM 08/26/20 [History] Brimonidine Tartrate/Timolol [Combigan 0.2%-0.5% Eye Drops] 1 drop EYEBOTH BID 08/27/20 [History] Latanoprost/Pf [Latanoprost 0.005% Eye Drop] 1 drop EYEBOTH BEDTIME 08/27/20 [History] Melatonin 10 mg SL BEDTIME 08/27/20 [History] QUEtiapine [SEROquel] 25 mg PO BEDTIME 08/27/20 [History] Past Medical History HEENT History: Reports: Hard of Hearing, Impaired Vision Cardiovascular History: Reports: Afib, High Cholesterol, Pacemaker, Other (See Below) Other Cardiovascular History: sinoatrial node dysfunction Gastrointestinal History: Reports: GERD DISTRIBUTION LEAD History: Reports: Musculoskeletal History: Reports: Arthritis Neurological History: Reports: Concussion Psychiatric History: Reports: Dementia Hematologic History: Reports: Anticoagulation Therapy - Infectious Disease History Infectious Disease History: Reports: Chicken Pox, Measles, Mumps - Past Surgical History Head Surgeries/Procedures: Reports: None HEENT Surgical History: Reports: Cataract Surgery Cardiovascular Surgical History: Reports: Pacer GI Surgical History: Reports: None Neurological Surgical History: Reports: None Musculoskeletal Surgical History: Reports: None Dermatological Surgical History: Reports: None Social & Family History - Family History Family Medical History: No Pertinent Family History - Tobacco Use Tobacco Use Status *Q: Never Tobacco User Second Hand Smoke Exposure: No - Caffeine Use Caffeine Use: Reports: None - Recreational Drug Use Recreational Drug Use: No ED ROS GENERAL - Review of Systems Review Of Systems: See Below Constitutional: Reports: No Symptoms HEENT: Reports: No Symptoms Respiratory: Reports: Cough (occasional), Sputum (at times). Denies: Shortness of Breath, Wheezing, Pleuritic Chest Pain, Hemoptysis Cardiovascular: Reports: No Symptoms Endocrine: Reports: No Symptoms GI/Abdominal: Reports: No Symptoms : Reports: No Symptoms Musculoskeletal: Reports: No Symptoms Skin: Reports: Wound (scalp, occipital) Neurological: Reports: Headache (since last evening) Psychiatric: Reports: Hallucinations (auditory) ED EXAM, SKIN/RASH Exam: See Below Exam Limited By: No Limitations General Appearance: Alert, No Apparent Distress, Thin Eye Exam: Bilateral Eye: Normal Inspection (slight conjunctival pallor) Ears: Normal External Exam, Normal Canal, Hearing Grossly Normal, Normal TMs Nose: Normal Inspection, No Blood Throat/Mouth: Normal Lips, Normal Oropharynx, Normal Voice, No Airway Compromise, Other (dry oral mucosa) Head: Normocephalic, Other (occipital scalp lac present) Respiratory/Chest: No Respiratory Distress, No Accessory Muscle Use, Chest Non- Tender, Rales (R>L?) Cardiovascular: Regular Rate, Rhythm, No Edema GI/Abdominal: Normal Bowel Sounds, Soft, Non-Tender, No Distention Back Exam: Normal Inspection Extremities: Normal Inspection, Normal Range of Motion, Non-Tender, No Pedal Edema. No: Pedal Edema, Zeke's Sign, Increased Warmth, Redness Neurological: Alert, Oriented, CN II-XII Intact, No Motor/Sensory Deficits Psychiatric: Normal Affect, Normal Mood Skin: Warm, Dry, Normal Color, No Rash, Wound/Incision (occiput laceration) Location, Skin: Head Characteristics: Linear Associated features: Tenderness. No: Warmth, Lymphangitis ED SKIN PROCEDURES - Laceration/Wound Repair Occipital Head Appearance: Subcutaneous, Linear, Clean Distal NVT: Neuro & Vascular Intact, No Tendon Injury Anesthetic Type: Local Local Anesthesia - Lidocaine (Xylocaine): 1% with EPI Local Anesthetic Volume: 5cc Skin Prep: Saline Exploration/Debridement/Repair: Wound Explored, No Foreign Material Found Closed with: Lenin Lac/Wound length In cm: 3.2 # of Sutures: 3 Drain Placement: No Sterile Dressing Applied: None Tetanus Status Addressed: Yes Complications: No #1 Interpretation EKG Date: 08/27/20 Time: 10:25 Rhythm: Other (paced rhythm) Rate (Beats/Min): 61 Comparison: NA - No Prior EKG (no definite ischemia noted. Venticular pacer.) Course - Vital Signs Text/Narrative:: Dr. Martinez called @ 1025h Last Recorded V/S: Last Vital Signs Temp 36.6 C 08/27/20 09:32 Pulse 61 08/27/20 11:24 Resp 16 08/27/20 11:24 BP 147/76 H 08/27/20 11:24 Pulse Ox 93 L 08/27/20 11:24 - Orders/Labs/Meds Orders: Active Orders 24 hr Category Date Time Status Cardiac Monitoring [RC] .As Directed Care 08/27/20 10:23 Active EKG Documentation Completion [RC] ASDIRECTED Care 08/27/20 10:23 Active Chest wo Cont [CT] Stat Exams 08/27/20 11:03 Taken CULTURE BLOOD [BC] Stat Lab 08/27/20 10:45 Received Sodium Chloride 0.9% [Saline Flush] Med 08/27/20 09:45 Active 10 ml FLUSH ASDIRECTED PRN Saline Lock Insert [OM.PC] Routine Oth 08/27/20 09:45 Ordered EKG 12 Lead [EK] Routine Ther 08/27/20 10:23 Ordered Medication Orders Sodium Chloride (Sodium Chloride 0.9% 10 Ml Syringe) 10 ml FLUSH ASDIRECTED PRN PRN Reason: Keep Vein Open Last Admin: 08/27/20 09:53 Dose: 10 ml Documented by: WARD Labs: Laboratory Tests 08/27/20 08/27/20 08/27/20 Range/Units 06:32 09:56 09:56 WBC 17.0 H (4.5-11.0) K/uL RBC 4.64 (3.30-5.50) M/uL Hgb 13.8 (12.0-15.0) g/dL Hct 41.0 (36.0-48.0) % MCV 88 (80-98) fL MCH 30 (27-31) pg MCHC 34 (32-36) % Plt Count 426 H (150-400) K/uL Troponin I 0.178 H* 0.348 H* (0.000-0.056) ng/mL C-Reactive Protein (0.0-0.3) mg/dL Urine Color (YELLOW) Urine Appearance (CLEAR) Urine pH (5.0-8.0) Ur Specific [place] (1.008-1.030) Urine Protein (NEGATIVE) mg/dL Urine Glucose (UA) (NEGATIVE) mg/dL Urine Ketones (NEGATIVE) mg/dL Urine Occult Blood (NEGATIVE) Urine Nitrite (NEGATIVE) Urine Bilirubin (NEGATIVE) Urine Urobilinogen (0.2-1.0) EU/dL Ur Leukocyte Esterase (NEGATIVE) Urine RBC (0-5) Urine WBC (0-5) Ur Epithelial Cells Amorphous Sediment Urine Bacteria Urine Mucus 08/27/20 08/27/20 Range/Units 10:04 10:06 WBC (4.5-11.0) K/uL RBC (3.30-5.50) M/uL Hgb (12.0-15.0) g/dL Hct (36.0-48.0) % MCV (80-98) fL MCH (27-31) pg MCHC (32-36) % Plt Count (150-400) K/uL Troponin I (0.000-0.056) ng/mL C-Reactive Protein 12.45 H (0.0-0.3) mg/dL Urine Color Yellow (YELLOW) Urine Appearance Clear (CLEAR) Urine pH 6.5 (5.0-8.0) Ur Specific [place] 1.025 (1.008-1.030) Urine Protein 30 H (NEGATIVE) mg/dL Urine Glucose (UA) Negative (NEGATIVE) mg/dL Urine Ketones 15 H (NEGATIVE) mg/dL Urine Occult Blood Moderate H (NEGATIVE) Urine Nitrite Negative (NEGATIVE) Urine Bilirubin Small H (NEGATIVE) Urine Urobilinogen >=8.0 H (0.2-1.0) EU/dL Ur Leukocyte Esterase Negative (NEGATIVE) Urine RBC 5-10 H (0-5) Urine WBC 0-5 (0-5) Ur Epithelial Cells Not seen Amorphous Sediment Not seen Urine Bacteria Not seen Urine Mucus Moderate Meds: Medications Generic Name Dose Route Start Last Admin Trade Name Freq PRN Reason Stop Dose Admin Sodium Chloride 10 ml 08/27/20 09:45 08/27/20 09:53 Sodium Chloride 0.9% 10 Ml Syringe FLUSH 10 ml ASDIRECTED PRN Administration Keep Vein Open Discontinued Medications Generic Name Dose Route Start Last Admin Trade Name Freq PRN Reason Stop Dose Admin Acetaminophen 1,000 mg 08/27/20 09:45 08/27/20 09:51 Acetaminophen 500 Mg Tab PO 08/27/20 09:46 1,000 mg ONETIME ONE Administration Bacitracin 1 dose 08/27/20 10:16 08/27/20 10:24 Bacitracin Oint 1 Gm U/D Packet TOP 08/27/20 10:17 1 dose ONETIME ONE Administration Doxycycline Hyclate 100 mg 08/27/20 10:39 08/27/20 10:48 Doxycycline 100 Mg Cap PO 08/27/20 10:40 100 mg ONETIME ONE Administration Sodium Chloride 1,000 mls @ 1,000 mls/hr 08/27/20 10:18 08/27/20 10:24 Normal Saline IV 08/27/20 11:17 1,000 mls/hr .BOLUS ONE Administration Ceftriaxone Sodium 1 gm/ 50 mls @ 100 mls/hr 08/27/20 10:38 08/27/20 10:48 Sodium Chloride IV 08/27/20 11:07 100 mls/hr ONETIME ONE Administration Lidocaine/Epinephrine 10 ml 08/27/20 09:49 08/27/20 09:52 Lidocaine 1% With Epinephrine 1:100,000 50 Ml Mdv SUBCUT 08/27/20 09:50 10 ml NOW STA Administration - Radiology Interpretation Free Text/Narrative:: CXR-pneumonia vs mucous plugging R mid chest with volume loss Chest CT scan-agreement with the above. CT Results Date: 08/27/20 CT Results Time: 11:40 - Re-Assessments/Exams Free Text/Narrative Re-Assessment/Exam: 08/27/20 11:[address] Gann, he requests comfort cares only. Dr. Martinez aware. Will put on Hospice and send back home. Departure - Departure Time of Disposition: 12:00 Disposition: Home, Self-Care 01 Condition: Fair Clinical Impression: Elevated troponin, Non-STEMI (non-ST elevated myocardial infarction), Hyponatremia, Mild dehydration, Fall in elderly patient Right middle lobe pneumonia Qualifiers: Pneumonia type: due to unspecified organism Qualified Code(s): J18.9 - Pn eumonia, unspecified organism Occipital scalp laceration Qualifiers: Encounter type: initial encounter Qualified Code(s): S01.01XA - Laceration without foreign body of scalp, initial encounter Dementia with Lewy bodies Qualifiers: Dementia behavioral disturbance: without behavioral disturbance Qualified Code(s): G31.83 - Dementia with Lewy bodies; F02.80 - Dementia in other diseases classified elsewhere without behavioral disturbance - Discharge Information *PRESCRIPTION DRUG MONITORING PROGRAM REVIEWED*: Not Applicable *COPY OF PRESCRIPTION DRUG MONITORING REPORT IN PATIENT [place]: Not Applicable Referrals: PCP,None [Primary Care Provider] - Forms: ED Department Discharge Additional Instructions: Clean scalp wound with 1/2 water and 1/2 peroxide twice daily. Dry. Apply antibiotic ointment and a new dressing. Comfort cares only going forward. Sepsis Event Note (ED) - Evaluation Sepsis Screening Result: No Definite Risk - Focused Exam Vital Signs: Vital Signs Temp Pulse Resp BP Pulse Ox 08/27/20 11:24 61 16 147/76 H 93 L 08/27/20 10:50 60 11 L 148/75 H 93 L 08/27/20 10:32 63 12 155/73 H 93 L 08/27/20 09:50 63 20 160/78 H 91 L 08/27/20 09:32 36.6 C 60 23 H 153/75 H 91 L 08/27/20 09:28 36.6 C 60 23 H 153/75 H 91 L - My Orders Last 24 Hours: My Active Orders 08/27/20 09:45 Sodium Chloride 0.9% [Saline Flush] 10 ml FLUSH ASDIRECTED PRN Saline Lock Insert [OM.PC] Routine 08/27/20 10:23 Cardiac Monitoring [RC] .As Directed EKG Documentation Completion [RC] ASDIRECTED EKG 12 Lead [EK] Routine 08/27/20 10:45 CULTURE BLOOD [BC] Stat 08/27/20 11:03 Chest wo Cont [CT] Stat - Assessment/Plan Last 24 Hours: My Active Orders 08/27/20 09:45 Sodium Chloride 0.9% [Saline Flush] 10 ml FLUSH ASDIRECTED PRN Saline Lock Insert [OM.PC] Routine 08/27/20 10:23 Cardiac Monitoring [RC] .As Directed EKG Documentation Completion [RC] ASDIRECTED EKG 12 Lead [EK] Routine 08/27/20 10:45 CULTURE BLOOD [BC] Stat 08/27/20 11:03 Chest wo Cont [CT] Stat
[2020-08-27] MEDS ORDERED: Bacitracin Oint 1 GM U/D Packet TOP ONE (10:16)
[2020-08-27] MEDS ORDERED: Sodium Chloride 0.9% 1,000 ML IV ONE (10:18)
--- NOTE | 2020-08-27 10:32 | CR ---
CHEST: Portable 08/27/2020 at 10:15 AM CLINICAL HISTORY:Hypoxia, cough, weakness COMPARISON:2010 FINDINGS: There is a masslike infiltrate in the right upper lobe with some volume loss. There is patchy infiltrate just below this in the perihilar region. There is underlying COPD with generalized interstitial prominence some of which may be acute. Heart and pulmonary vascularity are normal. IMPRESSION: Masslike infiltrate in the right upper lobe with some atelectasis. This could be consolidation and atelectasis. Underlying bronchial lesion or mucous plugging must be excluded. There is patchy density in the perihilar region which may represent a right lower lobe infiltrate. Above findings are superimposed on chronic lung changes Short-term follow-up recommended after course of therapy. Recommend treatment before follow-up CT
[2020-08-27] MEDS ORDERED: cefTRIAXone 1 GM in Sodium Chloride 0.9% 50 ML IV ONE (10:38)
[2020-08-27] MEDS ORDERED: Doxycycline 100 MG Cap PO ONE (10:39)
--- NOTE | 2020-08-27 11:49 | CT ---
Chest wo Cont CLINICAL HISTORY: Abnormal chest x-ray TECHNIQUE: Thin section axial contiguous tomographic sections were taken through the chest after bolus IV iodinated contrast administration. Coronal and sagittal images were reconstructed. Auto dosage reduction and iterative reconstruction techniques employed. FINDINGS: There is a moderate right pleural effusion and a [id number] left pleural effusion. There is dense consolidation involving the right upper lobe as well as the right lower lobe. There is also. Volume loss in the right upper lobe and middle lobe. There is some patchy right upper lobe infiltrate. There is some patchy and reticular nodular opacity in the right lower lobe laterally. No mediastinal mass or lymphadenopathy is identified. No obvious intrabronchial lesion is identified. There are atherosclerotic changes in the aorta. IMPRESSION: Moderate right and [id number] left pleural effusions of unknown etiology Moderate right lung airspace disease with infiltrate, consolidation and atelectasis. Underlying neoplasm would be difficult to exclude without IV contrast. Repeat study recommended following course of treatment
[2020-08-27 13:31] VITALS: BP 114/54; PULSE 64
== END 2020-08-27 13:51 | disposition home or self-care (01) ==
LOC: JP.ED 09:23
DX: S01.01XA Laceration without foreign body of scalp, initial encounter (principal); E86.0 Dehydration; J18.9 Pneumonia, unspecified organism; I21.4 Non-ST elevation (NSTEMI) myocardial infarction; E87.1 Hypo-osmolality and hyponatremia; G31.83 Neurocognitive disorder with Lewy bodies; F02.80 Dementia in other diseases classified elsewhere, unspecified severity, without behavioral disturbance, psychotic disturbance, mood disturbance, and anxiety; R79.89 Other specified abnormal findings of blood chemistry; I48.91 Unspecified atrial fibrillation; Z79.01 Long term (current) use of anticoagulants; Z88.8 Allergy status to other drugs, medicaments and biological substances; Z88.5 Allergy status to narcotic agent; Z88.6 Allergy status to analgesic agent; Z88.1 Allergy status to other antibiotic agents; Z91.040 Latex allergy status; Z79.899 Other long term (current) drug therapy; W18.30XA Fall on same level, unspecified, initial encounter
CPT/HCPCS: 12002; 36415; 71045; 71250; 81001; 84484; 85027; 86140; 87040; 93005; 96365; 99285; A9270; J0696; J7030